=== PATIENT | male | born 1945 | race Caucasian/White ===

== ENCOUNTER 2017-08-31 13:43 | Inpatient (IN) | payer MEDICARE, OTHER ==
[~2017-08-31] VITALS: Ht 172.7 cm; Wt 121.9 kg
[2017-08-31] MEDS ORDERED: SODIUM CHLORIDE FLUSH 10ML SYR IVF ONE (14:30)
[2017-08-31] MEDS ORDERED: ATOR-2 PO (14:34)
[2017-08-31] MEDS ORDERED: ASPI-515 PO (14:34)
[2017-08-31] MEDS ORDERED: LASIX PO (14:34)
[2017-08-31] MEDS ORDERED: BLOOD PRESSURE PO (14:34)
[2017-08-31 14:37] LABS: BASOPHILS # (AUTO) 0.05 x10^3/uL (0-0.1); BASOPHILS % (AUTO) 1 % (0-1); EOSINOPHILS # (AUTO) 0.31 x10^3/uL (0-0.4); EOSINOPHILS % (AUTO) 3 % (1-7); LYMPHOCYTES # (AUTO) 1.39 x10^3/uL (1-3.4); LYMPHOCYTES % (AUTO) 13 % (22-44); MD NO; MEAN CORPUSCULAR HEMOGLOBIN 29.9 pg (27.5-34.5); MEAN CORPUSCULAR HGB CONC 32.9 g/dL (33.2-36.2); MEAN CORPUSCULAR VOLUME 90.8 fL (81-97); MEAN PLATELET VOLUME 8.9 fL (7.4-10.4); MONOCYTES % (AUTO) 9 % (2-9); NEUTROPHILS # (AUTO) 7.99 x10^3/uL (1.8-6.8); NEUTROPHILS % (AUTO) 75 % (42-75); PLATELET COUNT 196 x10^3/uL (130-400); RED BLOOD COUNT 3.35 x10^6/uL (4.38-5.82); RED CELL DISTRIBUTION WIDTH 13.8 % (9.4-14.8)
[2017-08-31 14:45] LABS: INTERNATIONAL NORMALIZED RATIO 1.01 (0.93-1.1); PROTHROMBIN TIME 10.5 Seconds (9.6-11.5)
[2017-08-31] MEDS ORDERED: FUROSEMIDE 40 MG/4 ML ONE (14:49)
[2017-08-31 14:50] LABS: ALANINE AMINOTRANSFERASE 18 U/L (12-78); ALBUMIN 2.8 g/dL (3.4-5.0); ANION GAP 13 mmol/L (5-15); CALCIUM 6.8 mg/dL (8.5-10.1); CHLORIDE 108 mmol/L (98-107); CREATININE 7.75 mg/dL (0.7-1.3)
[2017-08-31] MEDS ORDERED: NITROGLYCERIN OINT 2%, 1GM TP ONE ×2 (14:50→15:00)
[2017-08-31 14:54] LABS: ALKALINE PHOSPHATASE 122 U/L (45-117); BILIRUBIN,TOTAL 0.4 mg/dL (0.2-1.0); TOTAL PROTEIN 6.6 g/dL (6.4-8.2); TROPONIN I 0.045 ng/mL (0.000-0.045)
[2017-08-31] MEDS ORDERED: LOSA100T6 PO (15:07)
[2017-08-31] MEDS ORDERED: GABA600T2 PO (15:07)
[2017-08-31] MEDS ORDERED: OMEP-110 PO (15:07)
[2017-08-31] MEDS ORDERED: INSU100V8 SQ (15:07)
[2017-08-31] MEDS ORDERED: TAMS-11 PO (15:07)
[2017-08-31] MEDS ORDERED: TRAM50TA2 PO (15:07)
[2017-08-31] MEDS ORDERED: FLUT12HF IH (15:07)
[2017-08-31] MEDS ORDERED: CEFTRIAXONE PMX 1GM/50ML 50 ML IV ONE (15:30)
[2017-08-31] MEDS ORDERED: AZITHROMYCIN 500 MG in SODIUM CHLORIDE 0.9% 250 ML IV ONE (15:30)
[2017-08-31] MEDS ORDERED: CEFTRIAXONE PMX 1GM/50ML 50 ML ONE (15:37)
[2017-08-31] MEDS ORDERED: LIDOCAINE-MPF 1%, 2ML ONE (16:13)
[2017-08-31] MEDS ORDERED: FENTANYL PF 100 MCG/2ML ONE (16:27)
[2017-08-31] MEDS ORDERED: NALOXONE 1 MG/ML, 2ML ONE (16:28)
[2017-08-31] MEDS ORDERED: FLUMAZENIL 0.1 MG/1 ML, 5ML ONE (16:28)
[2017-08-31] MEDS ORDERED: MIDAZOLAM 1 MG/ML, 5ML ONE ×2 (16:28)
[2017-08-31] MEDS ORDERED: LIDOCAINE-MPF 2% ,5ML ONE ×2 (16:39→17:19)
[2017-08-31] MEDS ORDERED: DOCUSATE 100 MG CAPSULE PO PRN (17:30)
[2017-08-31] MEDS: INSULIN LISPRO 100 UNITS/ML, PEN SQ-INSULIN SCH ×2 (17:30→21:00)
[2017-08-31] MEDS ORDERED: hydrALAzine 20 MG/ML, 1ML IVPush PRN (17:30)
[2017-08-31] MEDS ORDERED: INSULIN GLARGINE 100 UNITS/ML, PEN SQ-INSULIN SCH (17:30)
[2017-08-31] MEDS: CEFTRIAXONE PMX 1GM/50ML 50 ML IV SCH (17:37)
[2017-08-31 18:02] LABS: HEMOGLOBIN A1C 6.2 % (4.2-6.3)
[2017-08-31 18:26] VITALS: BP 134/86
[2017-08-31 19:05] VITALS: BP 141/87
[2017-08-31] MEDS ORDERED: ALBUTEROL/IPRATROPIUM 2.5MG/0.5MG, 3 ML NPPB PRN (21:30)
[2017-08-31] MEDS: GUAIFENESIN 200 MG TABLET PO SCH (23:19)
[2017-08-31] MEDS: DOXYCYCLINE 100 MG in DEXTROSE 5% 250 ML IV SCH (23:19)
[2017-08-31] MEDS: ATORVASTATIN 20 MG TABLET PO SCH (23:20)
[2017-09-01 02:00] VITALS: BP 167/97
[2017-09-01 05:53] LABS: BASOPHILS # (AUTO) 0.02 x10^3/uL (0-0.1); BASOPHILS % (AUTO) 0 % (0-1); CALCIUM 7.1 mg/dL (8.5-10.1); EOSINOPHILS % (AUTO) 0 % (1-7); LYMPHOCYTES # (AUTO) 0.38 x10^3/uL (1-3.4); LYMPHOCYTES % (AUTO) 4 % (22-44); MD NO; MEAN CORPUSCULAR HEMOGLOBIN 30.4 pg (27.5-34.5); MEAN CORPUSCULAR HGB CONC 33.5 g/dL (33.2-36.2); MEAN PLATELET VOLUME 9.2 fL (7.4-10.4); MONOCYTES # (AUTO) 0.11 x10^3/uL (0.2-0.8); MONOCYTES % (AUTO) 1 % (2-9); NEUTROPHILS # (AUTO) 8.62 x10^3/uL (1.8-6.8); NEUTROPHILS % (AUTO) 94 % (42-75); PLATELET COUNT 189 x10^3/uL (130-400); RED BLOOD COUNT 3.39 x10^6/uL (4.38-5.82); RED CELL DISTRIBUTION WIDTH 13.4 % (9.4-14.8)
[2017-09-01 05:55] LABS: ANION GAP 9 mmol/L (5-15); CHLORIDE 107 mmol/L (98-107); CREATININE 6.21 mg/dL (0.7-1.3)
[2017-09-01] MEDS: GUAIFENESIN 200 MG TABLET PO SCH ×4 (05:58→21:13)
[2017-09-01] MEDS: INSULIN LISPRO 100 UNITS/ML, PEN SQ-INSULIN SCH ×4 (07:00→21:13)
[2017-09-01 08:00] VITALS: BP 162/97
[2017-09-01] MEDS: OMEPRAZOLE 20 MG CAPSULE.DR PO SCH (08:13)
[2017-09-01] MEDS: GABAPENTIN 300 MG CAPSULE PO SCH (08:13)
[2017-09-01] MEDS: ASPIRIN 81 MG TABLET EC PO SCH (08:13)
[2017-09-01] MEDS: FLUTICASONE IH SCH (08:16)
[2017-09-01] MEDS: SALMETEROL IH SCH (08:16)
[2017-09-01] MEDS ORDERED: FUROSEMIDE 40 MG/4 ML IV SCH (09:00)
[2017-09-01] MEDS: TAMSULOSIN 0.4 MG CAP.ER.24H PO SCH (09:00)
[2017-09-01] MEDS: DOXYCYCLINE 100 MG in DEXTROSE 5% 250 ML IV SCH ×2 (09:36→21:13)
[2017-09-01] MEDS: ACETAMINOPHEN 325 MG TABLET PO PRN (16:33)
[2017-09-01] MEDS ORDERED: HEPARIN 5,000 UNITS/ML, 1ML IV ONE (17:00)
[2017-09-01 17:26] LABS: BASOPHILS # (AUTO) 0.01 x10^3/uL (0-0.1); BASOPHILS % (AUTO) 0 % (0-1); EOSINOPHILS % (AUTO) 0 % (1-7); LYMPHOCYTES # (AUTO) 0.38 x10^3/uL (1-3.4); LYMPHOCYTES % (AUTO) 3 % (22-44); MD NO; MEAN CORPUSCULAR HEMOGLOBIN 29.9 pg (27.5-34.5); MEAN CORPUSCULAR HGB CONC 32.9 g/dL (33.2-36.2); MEAN CORPUSCULAR VOLUME 90.8 fL (81-97); MEAN PLATELET VOLUME 9.1 fL (7.4-10.4); MONOCYTES # (AUTO) 0.25 x10^3/uL (0.2-0.8); MONOCYTES % (AUTO) 2 % (2-9); NEUTROPHILS # (AUTO) 11.28 x10^3/uL (1.8-6.8); NEUTROPHILS % (AUTO) 95 % (42-75); PLATELET COUNT 219 x10^3/uL (130-400); RED BLOOD COUNT 3.67 x10^6/uL (4.38-5.82); RED CELL DISTRIBUTION WIDTH 13.1 % (9.4-14.8)
[2017-09-01] MEDS: CEFTRIAXONE PMX 1GM/50ML 50 ML IV SCH (17:43)
[2017-09-01] MEDS: HEPARIN 25,000 UNITS/500ML PMX 500 ML IV PRN (18:37)
[2017-09-01 20:00] VITALS: BP 138/72
[2017-09-01] MEDS: ATORVASTATIN 20 MG TABLET PO SCH (21:13)
[2017-09-01] MEDS: INSULIN GLARGINE 100 UNITS/ML, PEN SQ-INSULIN SCH ×2 (21:14)
[2017-09-02 02:00] VITALS: BP 146/82
[2017-09-02] MEDS: HEPARIN 5,000 UNITS/ML, 1ML IV PRN ×2 (02:28→12:27)
[2017-09-02 05:22] LABS: MEAN PLATELET VOLUME 9.6 fL (7.4-10.4); PLATELET COUNT 220 x10^3/uL (130-400); RED BLOOD COUNT 3.25 x10^6/uL (4.38-5.82); RED CELL DISTRIBUTION WIDTH 13.4 % (9.4-14.8)
[2017-09-02 05:31] LABS: CHLORIDE 105 mmol/L (98-107)
[2017-09-02 05:41] LABS: % IRON SATURATION 34 % (20-55); ALBUMIN 2.5 g/dL (3.4-5.0); ANION GAP 10 mmol/L (5-15); CALCIUM 7.1 mg/dL (8.5-10.1); CREATININE 5.68 mg/dL (0.7-1.3); IRON LEVEL 76 mcg/dL (65-175); TOTAL IRON BINDING CAPACITY 226 mcg/dL (250-450)
[2017-09-02 05:48] LABS: BASOPHILS # (AUTO) 0.03 x10^3/uL (0-0.1); BASOPHILS % (AUTO) 0 % (0-1); EOSINOPHILS # (AUTO) 0.03 x10^3/uL (0-0.4); EOSINOPHILS % (AUTO) 0 % (1-7); LYMPHOCYTES # (AUTO) 1.62 x10^3/uL (1-3.4); LYMPHOCYTES % (AUTO) 9 % (22-44); MD SCAN; MONOCYTES # (AUTO) 1.61 x10^3/uL (0.2-0.8); MONOCYTES % (AUTO) 9 % (2-9); NEUTROPHILS # (AUTO) 14.63 x10^3/uL (1.8-6.8); NEUTROPHILS % (AUTO) 82 % (42-75)
[2017-09-02] MEDS: GUAIFENESIN 200 MG TABLET PO SCH ×4 (05:55→21:53)
[2017-09-02] MEDS ORDERED: METOPROLOL 1 MG/ML, 5ML IVPush STA (06:27)
[2017-09-02] MEDS ORDERED: METOPROLOL 1 MG/ML, 5ML ONE (06:31)
[2017-09-02] MEDS: INSULIN LISPRO 100 UNITS/ML, PEN SQ-INSULIN SCH ×4 (07:00→21:54)
[2017-09-02 08:00] VITALS: BP 110/68
[2017-09-02] MEDS: METOPROLOL TARTRATE 50 MG TABLET PO SCH ×2 (08:39→17:22)
[2017-09-02] MEDS: DOXYCYCLINE 100 MG in DEXTROSE 5% 250 ML IV SCH ×2 (08:39→21:53)
[2017-09-02] MEDS: ASPIRIN 81 MG TABLET EC PO SCH (08:39)
[2017-09-02] MEDS: TAMSULOSIN 0.4 MG CAP.ER.24H PO SCH (08:39)
[2017-09-02] MEDS: GABAPENTIN 300 MG CAPSULE PO SCH (08:40)
[2017-09-02] MEDS: ACETAMINOPHEN 325 MG TABLET PO PRN ×2 (08:40→17:22)
[2017-09-02] MEDS: CALCIUM ACETATE 667 MG CAPSULE PO SCH ×3 (08:52→21:53)
[2017-09-02] MEDS: OMEPRAZOLE 20 MG CAPSULE.DR PO SCH (08:53)
[2017-09-02] MEDS: CALCITRIOL 0.25 MCG CAPSULE PO SCH (08:55)
[2017-09-02] MEDS: SALMETEROL IH SCH (08:57)
[2017-09-02] MEDS: FLUTICASONE IH SCH (08:57)
[2017-09-02] MEDS ORDERED: ERGOCALCIFEROL 50,000 UNIT CAPSULE PO SCH (09:00)
[2017-09-02] MEDS: HEPARIN 25,000 UNITS/500ML PMX 500 ML IV PRN (14:19)
[2017-09-02 15:30] VITALS: BP 142/81
[2017-09-02] MEDS: CEFTRIAXONE PMX 1GM/50ML 50 ML IV SCH (17:27)
[2017-09-02 20:38] VITALS: BP 143/78
[2017-09-02] MEDS: ATORVASTATIN 20 MG TABLET PO SCH (21:53)
[2017-09-02] MEDS: APIXABAN 5 MG TABLET PO SCH (21:53)
[2017-09-02] MEDS: INSULIN GLARGINE 100 UNITS/ML, PEN SQ-INSULIN SCH (21:55)
[2017-09-03 01:25] VITALS: BP 136/76
[2017-09-03 05:22] LABS: MEAN CORPUSCULAR HEMOGLOBIN 30.9 pg (27.5-34.5); MEAN CORPUSCULAR HGB CONC 33.7 g/dL (33.2-36.2); MEAN CORPUSCULAR VOLUME 91.7 fL (81-97); MEAN PLATELET VOLUME 9.5 fL (7.4-10.4); PLATELET COUNT 202 x10^3/uL (130-400)
[2017-09-03 05:33] LABS: CHLORIDE 104 mmol/L (98-107)
[2017-09-03 05:47] LABS: ALBUMIN 2.7 g/dL (3.4-5.0); ANION GAP 12 mmol/L (5-15); CALCIUM 7.2 mg/dL (8.5-10.1); CREATININE 6.62 mg/dL (0.7-1.3)
[2017-09-03 06:02] LABS: BASOPHILS # (AUTO) 0.03 x10^3/uL (0-0.1); BASOPHILS % (AUTO) 0 % (0-1); EOSINOPHILS # (AUTO) 0.01 x10^3/uL (0-0.4); EOSINOPHILS % (AUTO) 0 % (1-7); LYMPHOCYTES # (AUTO) 1.87 x10^3/uL (1-3.4); LYMPHOCYTES % (AUTO) 11 % (22-44); MD SCAN; MONOCYTES # (AUTO) 1.53 x10^3/uL (0.2-0.8); MONOCYTES % (AUTO) 9 % (2-9); NEUTROPHILS # (AUTO) 13.54 x10^3/uL (1.8-6.8); NEUTROPHILS % (AUTO) 80 % (42-75)
[2017-09-03] MEDS: GUAIFENESIN 200 MG TABLET PO SCH ×4 (06:08→21:32)
[2017-09-03] MEDS: METOPROLOL TARTRATE 50 MG TABLET PO SCH ×2 (06:08→16:52)
[2017-09-03] MEDS: ACETAMINOPHEN 325 MG TABLET PO PRN ×3 (06:28→21:32)
[2017-09-03] MEDS: INSULIN LISPRO 100 UNITS/ML, PEN SQ-INSULIN SCH ×4 (07:00→21:34)
[2017-09-03 07:52] VITALS: BP 136/77
[2017-09-03] MEDS: FLUTICASONE IH SCH (08:38)
[2017-09-03] MEDS: DOXYCYCLINE 100 MG in DEXTROSE 5% 250 ML IV SCH ×2 (08:38→21:38)
[2017-09-03] MEDS: CALCITRIOL 0.25 MCG CAPSULE PO SCH (08:38)
[2017-09-03] MEDS: SALMETEROL IH SCH (08:38)
[2017-09-03] MEDS: GABAPENTIN 300 MG CAPSULE PO SCH (08:38)
[2017-09-03] MEDS: OMEPRAZOLE 20 MG CAPSULE.DR PO SCH (08:38)
[2017-09-03] MEDS: TAMSULOSIN 0.4 MG CAP.ER.24H PO SCH (08:38)
[2017-09-03] MEDS: ASPIRIN 81 MG TABLET EC PO SCH (08:49)
[2017-09-03] MEDS: APIXABAN 5 MG TABLET PO SCH ×2 (08:49→21:36)
[2017-09-03] MEDS: CALCIUM ACETATE 667 MG CAPSULE PO SCH ×2 (11:12→16:52)
[2017-09-03 12:34] VITALS: BP 161/84
[2017-09-03] MEDS: CEFTRIAXONE PMX 1GM/50ML 50 ML IV SCH (16:59)
[2017-09-03 18:57] VITALS: BP 144/72
[2017-09-03] MEDS: ATORVASTATIN 20 MG TABLET PO SCH (21:32)
[2017-09-03] MEDS: INSULIN GLARGINE 100 UNITS/ML, PEN SQ-INSULIN SCH (21:33)
[2017-09-04] VITALS (11 sets, daily range): BP systolic 90–160; BP diastolic 55–83
[2017-09-04] MEDS: METOPROLOL TARTRATE 50 MG TABLET PO SCH ×2 (05:36→18:14)
[2017-09-04] MEDS: GUAIFENESIN 200 MG TABLET PO SCH (05:36)
[2017-09-04 05:56] LABS: MEAN CORPUSCULAR HEMOGLOBIN 30.7 pg (27.5-34.5); MEAN CORPUSCULAR HGB CONC 33.5 g/dL (33.2-36.2); MEAN CORPUSCULAR VOLUME 91.5 fL (81-97); MEAN PLATELET VOLUME 9.3 fL (7.4-10.4); PLATELET COUNT 196 x10^3/uL (130-400); RED BLOOD COUNT 3.22 x10^6/uL (4.38-5.82)
[2017-09-04 06:03] LABS: ALANINE AMINOTRANSFERASE 21 U/L (12-78); ALBUMIN 2.6 g/dL (3.4-5.0); ANION GAP 12 mmol/L (5-15); CHLORIDE 101 mmol/L (98-107); CREATININE 5.24 mg/dL (0.7-1.3)
[2017-09-04 06:05] LABS: ALKALINE PHOSPHATASE 106 U/L (45-117); BILIRUBIN,TOTAL 0.5 mg/dL (0.2-1.0); TOTAL PROTEIN 5.8 g/dL (6.4-8.2)
[2017-09-04 06:31] LABS: BASOPHILS # (AUTO) 0.02 x10^3/uL (0-0.1); BASOPHILS % (AUTO) 0 % (0-1); EOSINOPHILS # (AUTO) 0.03 x10^3/uL (0-0.4); EOSINOPHILS % (AUTO) 0 % (1-7); LYMPHOCYTES # (AUTO) 2.06 x10^3/uL (1-3.4); LYMPHOCYTES % (AUTO) 14 % (22-44); MD SCAN; MONOCYTES # (AUTO) 1.53 x10^3/uL (0.2-0.8); MONOCYTES % (AUTO) 11 % (2-9); NEUTROPHILS # (AUTO) 10.95 x10^3/uL (1.8-6.8); NEUTROPHILS % (AUTO) 75 % (42-75)
[2017-09-04] MEDS: INSULIN LISPRO 100 UNITS/ML, PEN SQ-INSULIN SCH ×4 (07:00→21:28)
[2017-09-04] MEDS: CALCITRIOL 0.25 MCG CAPSULE PO SCH (08:24)
[2017-09-04] MEDS: OMEPRAZOLE 20 MG CAPSULE.DR PO SCH (08:24)
[2017-09-04] MEDS: GABAPENTIN 300 MG CAPSULE PO SCH (08:24)
[2017-09-04] MEDS: CALCIUM ACETATE 667 MG CAPSULE PO SCH ×3 (08:24→16:59)
[2017-09-04] MEDS: TAMSULOSIN 0.4 MG CAP.ER.24H PO SCH (08:25)
[2017-09-04] MEDS: APIXABAN 5 MG TABLET PO SCH ×2 (08:25→21:27)
[2017-09-04] MEDS: FLUTICASONE IH SCH (09:00)
[2017-09-04] MEDS: SALMETEROL IH SCH (09:00)
[2017-09-04] MEDS: DOXYCYCLINE 100 MG in DEXTROSE 5% 250 ML IV SCH ×2 (09:56→21:27)
[2017-09-04] MEDS: ACETAMINOPHEN 325 MG TABLET PO PRN ×2 (11:11→19:58)
[2017-09-04] MEDS: GUAIFENESIN 100 MG/5 ML, 10ML UDC PO SCH ×2 (16:59→21:27)
[2017-09-04] MEDS: CEFTRIAXONE PMX 1GM/50ML 50 ML IV SCH (16:59)
[2017-09-04] MEDS: ATORVASTATIN 20 MG TABLET PO SCH (21:28)
[2017-09-04] MEDS: INSULIN GLARGINE 100 UNITS/ML, PEN SQ-INSULIN SCH (21:29)
[2017-09-05 02:42] VITALS: BP 130/60
[2017-09-05 05:09] LABS: MEAN CORPUSCULAR HEMOGLOBIN 30.2 pg (27.5-34.5); MEAN CORPUSCULAR HGB CONC 32.9 g/dL (33.2-36.2); MEAN CORPUSCULAR VOLUME 91.8 fL (81-97); MEAN PLATELET VOLUME 9.2 fL (7.4-10.4); PLATELET COUNT 181 x10^3/uL (130-400); RED BLOOD COUNT 3.38 x10^6/uL (4.38-5.82); RED CELL DISTRIBUTION WIDTH 13.7 % (9.4-14.8)
[2017-09-05 05:33] LABS: ALANINE AMINOTRANSFERASE 21 U/L (12-78); ALBUMIN 2.6 g/dL (3.4-5.0); ALKALINE PHOSPHATASE 102 U/L (45-117); BILIRUBIN,TOTAL 0.4 mg/dL (0.2-1.0); CALCIUM 7.2 mg/dL (8.5-10.1); CREATININE 6.28 mg/dL (0.7-1.3); TOTAL PROTEIN 5.8 g/dL (6.4-8.2)
[2017-09-05 05:38] LABS: ANION GAP 12 mmol/L (5-15); BASOPHILS # (AUTO) 0.07 x10^3/uL (0-0.1); BASOPHILS % (AUTO) 0 % (0-1); CHLORIDE 103 mmol/L (98-107); EOSINOPHILS # (AUTO) 0.07 x10^3/uL (0-0.4); EOSINOPHILS % (AUTO) 1 % (1-7); LYMPHOCYTES # (AUTO) 2.14 x10^3/uL (1-3.4); LYMPHOCYTES % (AUTO) 14 % (22-44); MD SCAN; MONOCYTES # (AUTO) 1.53 x10^3/uL (0.2-0.8); MONOCYTES % (AUTO) 10 % (2-9); NEUTROPHILS # (AUTO) 11.55 x10^3/uL (1.8-6.8); NEUTROPHILS % (AUTO) 75 % (42-75)
[2017-09-05 05:43] VITALS: BP 145/71
[2017-09-05] MEDS: METOPROLOL TARTRATE 50 MG TABLET PO SCH (05:44)
[2017-09-05] MEDS: GUAIFENESIN 100 MG/5 ML, 10ML UDC PO SCH ×2 (05:44→11:34)
[2017-09-05] MEDS: INSULIN LISPRO 100 UNITS/ML, PEN SQ-INSULIN SCH ×2 (07:00→11:34)
[2017-09-05 07:30] VITALS: BP 117/68
[2017-09-05] MEDS: TAMSULOSIN 0.4 MG CAP.ER.24H PO SCH (07:36)
[2017-09-05] MEDS: FLUTICASONE IH SCH (07:36)
[2017-09-05] MEDS: APIXABAN 5 MG TABLET PO SCH (07:36)
[2017-09-05] MEDS: GABAPENTIN 300 MG CAPSULE PO SCH (07:36)
[2017-09-05] MEDS: CALCITRIOL 0.25 MCG CAPSULE PO SCH (07:36)
[2017-09-05] MEDS: CALCIUM ACETATE 667 MG CAPSULE PO SCH ×2 (07:36→11:34)
[2017-09-05] MEDS: SALMETEROL IH SCH (07:36)
[2017-09-05] MEDS: OMEPRAZOLE 20 MG CAPSULE.DR PO SCH (07:36)
[2017-09-05] MEDS: DOXYCYCLINE 100 MG in DEXTROSE 5% 250 ML IV SCH (08:26)
[2017-09-05] MEDS ORDERED: CALC0.25 PO (11:08)
[2017-09-05] MEDS ORDERED: TIOT18CA INH (11:08)
[2017-09-05] MEDS ORDERED: FLUT1DIS IH (11:08)
[2017-09-05] MEDS ORDERED: APIX5TAB PO (11:08)
[2017-09-05] MEDS ORDERED: METO50TA82 PO (11:08)
[2017-09-05] MEDS ORDERED: PRED10TA PO (11:08)
[2017-09-05] MEDS ORDERED: ERGO500017 PO (11:08)
[2017-09-05] MEDS ORDERED: CEFD300C37 PO (11:08)
[2017-09-05] MEDS ORDERED: DOXY100C15 PO (11:08)
[2017-09-05] MEDS ORDERED: CALC667C PO (11:10)
[2017-09-05] MEDS: ACETAMINOPHEN 325 MG TABLET PO PRN (11:38)
[2017-09-05 14:01] VITALS: BP 111/69
[2017-09-05] MEDS ORDERED: APIXABAN 5 MG TABLET PO SCH (21:00)
[2017-09-05] MEDS ORDERED: DOXYCYCLINE 100MG CAP PO SCH (21:00)
== END 2017-09-05 17:30 | disposition home or self-care (01) | DRG 871 ==
LOC: ED 15:22 → EDIP 15:51 → 4WST 18:13
PROVIDERS: ADMIT Internal Medicine; ATTEND Internal Medicine
PROC: 5A1D70Z Performance of Urinary Filtration, Intermittent, Less than 6 Hours Per Day (ICD-10-PCS; 2017-08-31)
PROC: 5A1D70Z Performance of Urinary Filtration, Intermittent, Less than 6 Hours Per Day (ICD-10-PCS; 2017-09-01)
PROC: 0JH63XZ Insertion of Tunneled Vascular Access Device into Chest Subcutaneous Tissue and Fascia, Percutaneous Approach (ICD-10-PCS; principal; 2017-09-03)
PROC: 02HV33Z Insertion of Infusion Device into Superior Vena Cava, Percutaneous Approach (ICD-10-PCS; 2017-09-03)
PROC: B548ZZA Ultrasonography of Superior Vena Cava, Guidance (ICD-10-PCS; 2017-09-03)
PROC: 5A1D70Z Performance of Urinary Filtration, Intermittent, Less than 6 Hours Per Day (ICD-10-PCS; 2017-09-03)
PROC: 5A1D70Z Performance of Urinary Filtration, Intermittent, Less than 6 Hours Per Day (ICD-10-PCS; 2017-09-04)
DX: A41.9 Sepsis, unspecified organism (principal); J18.9 Pneumonia, unspecified organism; J96.01 Acute respiratory failure with hypoxia; E43 Unspecified severe protein-calorie malnutrition; I13.2 Hypertensive heart and chronic kidney disease with heart failure and with stage 5 chronic kidney disease, or end stage renal disease; E11.21 Type 2 diabetes mellitus with diabetic nephropathy; D68.69 Other thrombophilia; N17.9 Acute kidney failure, unspecified; E11.40 Type 2 diabetes mellitus with diabetic neuropathy, unspecified; N18.6 End stage renal disease; I50.41 Acute combined systolic (congestive) and diastolic (congestive) heart failure; J44.0 Chronic obstructive pulmonary disease with (acute) lower respiratory infection; J44.1 Chronic obstructive pulmonary disease with (acute) exacerbation; I50.1 Left ventricular failure, unspecified; Z68.41 Body mass index [BMI] 40.0-44.9, adult; I48.91 Unspecified atrial fibrillation; E11.22 Type 2 diabetes mellitus with diabetic chronic kidney disease; J30.9 Allergic rhinitis, unspecified; D63.1 Anemia in chronic kidney disease; E66.01 Morbid (severe) obesity due to excess calories; E78.5 Hyperlipidemia, unspecified; E83.51 Hypocalcemia; K21.9 Gastro-esophageal reflux disease without esophagitis; N25.0 Renal osteodystrophy; N40.0 Benign prostatic hyperplasia without lower urinary tract symptoms; Z87.891 Personal history of nicotine dependence
CPT/HCPCS: 36415; 36565; 71045; 76937; 77001; 80048; 80053; 80069; 82306; 82728; 82962; 83036; 83540; 83550; 83605; 83735; 83880; 83970; 84100; 84132; 84145; 84484; 85025; 85520; 85610; 86480; 86704; 86706; 86803; 87040; 87070; 87077; 87186; 87205; 87340; 93005; 93306; 96365; 96368; 96375; 99156; 99157; C1894; J0456; J0696; J1644; J1940; J2250; J3010; J3490; J7060; C1750; J1642; J1815; J2310; J7050; J7512

== ENCOUNTER 2017-12-10 07:11 | Day surgery (SDC) | payer MEDICARE, OTHER ==
[~2017-12-10] VITALS: Ht 172.7 cm; Wt 119.0 kg
[~2017-12-10 07:11] MED LIST: APIX5TAB PO; ASPI-515 PO; ATOR-2 PO; BLOOD PRESSURE PO; CALC0.25 PO; CALC667C PO; CEFD300C37 PO; DOXY100C15 PO; ERGO500017 PO; FLUT12HF IH; FLUT1DIS IH; GABA600T2 PO; INSU100V8 SQ; LASIX PO; LOSA100T6 PO; METO50TA82 PO; OMEP-110 PO; PRED10TA PO; TAMS-11 PO; TIOT18CA INH; TRAM50TA2 PO
[2017-12-10 07:54] VITALS: BP 112/74
[2017-12-10] MEDS ORDERED: ATOR10TA9 PO (08:01)
[2017-12-10] MEDS ORDERED: FURO20TA3 PO (08:01)
[2017-12-10] MEDS ORDERED: APIX5TAB PO (08:01)
[2017-12-10] MEDS ORDERED: INSU100I18 SQ ×2 (08:30)
[2017-12-10] MEDS ORDERED: SODIUM CHLORIDE 0.9% 1,000 ML IV SCH (08:30)
[2017-12-10] MEDS ORDERED: FENTANYL PF 100 MCG/2ML ONE (09:14)
[2017-12-10] MEDS ORDERED: HEPARIN 1,000 UNITS/ML, 10ML ONE (10:00)
[2017-12-10] MEDS ORDERED: ALBUTEROL SULFATE 2.5 MG/3 ML NPPB PRN (10:30)
[2017-12-10] MEDS ORDERED: PROMETHAZINE 25 MG/ML, 1ML IV PRN (10:30)
[2017-12-10] MEDS ORDERED: ACETAMINOPHEN 325 MG TABLET PO PRN (10:30)
[2017-12-10] MEDS ORDERED: FENTANYL PF 100 MCG/2ML IV PRN (10:30)
[2017-12-10] MEDS ORDERED: OXYcodone 5 MG/5 ML ORAL.SOL UDC PO PRN (10:30)
[2017-12-10] MEDS ORDERED: CEFAZOLIN 1,000 MG ONE ×2 (10:33)
[2017-12-10] MEDS ORDERED: PROPOFOL 10 MG/ML, 20ML ONE (10:33)
[2017-12-10] MEDS ORDERED: OXYcodone 5 MG/5 ML ORAL.SOL UDC ONE (11:25)
[2017-12-10] MEDS ORDERED: PAPAVERINE 30 MG/ML, 2ML ONE (13:47)
[2017-12-10] MEDS ORDERED: BUPIVACAINE/PF 0.5% ONE (13:47)
[2017-12-10] MEDS ORDERED: EPINEPHRINE 1 MG/ML, 1ML ONE (13:47)
[2017-12-10] MEDS ORDERED: ONDANSETRON 2MG/ML, 2ML ONE (15:33)
[2017-12-10] MEDS ORDERED: PHENYLEPHRINE 10 MG/ML ONE (15:33)
== END 2017-12-10 12:50 | disposition home or self-care (01) ==
LOC: OUT 07:11
PROVIDERS: ATTEND Surgery Vascular Surgery
DX: E11.22 Type 2 diabetes mellitus with diabetic chronic kidney disease (principal); I13.2 Hypertensive heart and chronic kidney disease with heart failure and with stage 5 chronic kidney disease, or end stage renal disease; I50.9 Heart failure, unspecified; N18.6 End stage renal disease; E78.5 Hyperlipidemia, unspecified; J44.9 Chronic obstructive pulmonary disease, unspecified; D64.9 Anemia, unspecified; J30.9 Allergic rhinitis, unspecified; N40.0 Benign prostatic hyperplasia without lower urinary tract symptoms; K21.9 Gastro-esophageal reflux disease without esophagitis; E66.01 Morbid (severe) obesity due to excess calories; E11.40 Type 2 diabetes mellitus with diabetic neuropathy, unspecified; Z86.14 Personal history of Methicillin resistant Staphylococcus aureus infection; Z87.891 Personal history of nicotine dependence; Z79.82 Long term (current) use of aspirin; Z79.899 Other long term (current) drug therapy; Z68.41 Body mass index [BMI] 40.0-44.9, adult; Z87.01 Personal history of pneumonia (recurrent)
CPT/HCPCS: 36415; 36821; 80047; J0690; J1644; J2370; J2405; J2440; J2704; J3010; J3490; J7030; J0171

== ENCOUNTER 2018-08-13 19:52 | Inpatient (IN) | payer MEDICARE, OTHER ==
[~2018-08-13] VITALS: Ht 175.3 cm; Wt 90.9 kg
[~2018-08-13 19:52] MED LIST changes: +ATOR10TA9 PO; +FURO20TA3 PO; -GABA600T2 PO; +GABA600T7 PO; +INSU100I18 SQ; +LOSA100T14 PO; -LOSA100T6 PO
--- NOTE | 2018-08-13 20:28 | NUR ---
pt to ed for redness to abd dialysis port. scheduled m,w,f. pt and report fever up to 100.6 today. pt was prescribed abx yesterday but was unable to obtain from pharmacy. pt also states he fell today due to weak legs and was unable to get up. audio/video engineer were called to help pt get back up. pt states increasing sob x2 days. connected to monitors. ra o2 sat 78%, 3l nc placed and pt recovered to 98%. all other vss. orders received. xr complete. pa student to bedside for assessment. awaiting results.
[2018-08-13] MEDS ORDERED: SODIUM CHLORIDE FLUSH 10ML SYR IVF ONE (20:30)
[2018-08-13] MEDS ORDERED: ACETAMINOPHEN 325 MG TABLET PO ONE (20:30)
[2018-08-13 20:50] LABS: MEAN CORPUSCULAR HEMOGLOBIN 32.7 pg (27.5-34.5); MEAN CORPUSCULAR HGB CONC 33.7 g/dL (33.2-36.2); MEAN CORPUSCULAR VOLUME 97.1 fL (81-97); MEAN PLATELET VOLUME 8.1 fL (7.4-10.4); PLATELET COUNT 272 x10^3/uL (130-400); RED BLOOD COUNT 2.95 x10^6/uL (4.38-5.82); RED CELL DISTRIBUTION WIDTH 13.7 % (9.4-14.8)
[2018-08-13 20:53] LABS: MD YES
[2018-08-13 20:59] LABS: ALANINE AMINOTRANSFERASE 28 U/L (12-78); ALBUMIN 2.4 g/dL (3.4-5.0); ANION GAP 7 mmol/L (5-15); CALCIUM 8.7 mg/dL (8.5-10.1); CHLORIDE 102 mmol/L (98-107); CREATININE 5.68 mg/dL (0.7-1.3)
[2018-08-13 21:04] LABS: ALKALINE PHOSPHATASE 74 U/L (45-117); BILIRUBIN,TOTAL 0.5 mg/dL (0.2-1.0); TOTAL PROTEIN 5.9 g/dL (6.4-8.2)
--- NOTE | 2018-08-13 21:08 | NUR ---
iv established and 2nd set of bc collected. edmd to bedside to update on poc. plan to admit. pt states nearly aneuric. edmd aware. vss. no needs expressed. call light within reach.
[2018-08-13] MEDS ORDERED: ACETAMINOPHEN 325 MG TABLET ONE (21:11)
--- NOTE | 2018-08-13 21:52 | NUR ---
PT RESTING IN ROOM. VSS. NO NEEDS EXPRESSED. CALL LIGHT WITHIN REACH. AWAITING US.
[2018-08-13 21:54] LABS: BAND#(MANUAL) 1.25 x10^3/uL; BANDS%(MANUAL) 6 % (0-7); LYMPH#(MANUAL) 0.42 x10^3/uL (1-3.4); LYMPHS% (MANUAL) 2 % (22-44); METAMYELOCYTES# (MANUAL) 0.21 x10^3/uL (0-0); METAMYELOCYTES% (MANUAL) 1 % (0-1); MONOS#(MANUAL) 1.05 x10^3/uL (0.3-2.7); MONOS% (MANUAL) 5 % (2-9); MYELOCYTES# (MANUAL) 0.42 x10^3/uL (0-0); MYELOCYTES% (MANUAL) 2 % (0-0); SEG#(MANUAL) 17.56 x10^3/uL (1.8-6.8); SEGS% (MANUAL) 84 % (42-75)
[2018-08-13 21:56] LABS: <PLATELET ESTIMATE> ADEQUATE; <PLT MORPHOLOGY> NORMAL PLT MORPH; ANISOCYTOSIS 1+; POLYCHROMASIA 1+
--- NOTE | 2018-08-13 22:01 | NUR ---
BS REPORT TO JAGDISH LIZARRAGA. PT TO US AT THIS TIME.
[2018-08-13] MEDS ORDERED: LIDOCAINE-MPF 1%, 5ML ONE (22:05)
--- NOTE | 2018-08-13 22:47 | NUR ---
Report from Irene DUBON. Pt returned from IR. No fluid removed. Pt NAD at this time.
[2018-08-13] MEDS ORDERED: CEFTRIAXONE PMX 1GM/50ML 50 ML IVPB ONE (23:30)
[2018-08-13] MEDS ORDERED: CEFTRIAXONE PMX 1GM/50ML 50 ML ONE (23:53)
[2018-08-14] MEDS ORDERED: SODIUM CHLORIDE FLUSH 10ML SYR IVF PRN
[2018-08-14] MEDS ORDERED: ALBUTEROL/IPRATROPIUM 2.5MG/0.5MG, 3 ML HHN PRN (00:30)
[2018-08-14] MEDS ORDERED: ONDANSETRON 2MG/ML, 2ML IVPush PRN (00:30)
[2018-08-14 01:00] VITALS: BP 129/69
[2018-08-14 02:28] LABS: RAPID INFLUENZA A Negative (Negative); RAPID INFLUENZA B Negative (Negative)
[2018-08-14] MEDS ORDERED: INSULIN LISPRO 100 UNITS/ML, PEN SQ-INSULIN SCH ×2 (07:00→12:00)
[2018-08-14 07:51] VITALS: BP 134/72
[2018-08-14] MEDS: ASPIRIN 81 MG TABLET EC PO SCH (08:29)
[2018-08-14] MEDS: ATORVASTATIN 10 MG TABLET PO SCH (08:30)
[2018-08-14 09:42] LABS: MICROSCOPIC AUTO
[2018-08-14 09:44] LABS: CULTURE INDICATED? NO
[2018-08-14] MEDS: INSULIN LISPRO 100 UNITS/ML, PEN SQ-INSULIN SCH ×4 (11:00→21:00)
[2018-08-14] MEDS ORDERED: ARANESP 100 MCG/ML **ESRD SQ SCH (11:00)
[2018-08-14 14:00] VITALS: BP 144/67
[2018-08-14] MEDS ORDERED: VANCOMYCIN PER PHARMACY MC PRN (14:30)
[2018-08-14] MEDS ORDERED: AMPICILLIN/SULBACTAM 3 GM in SODIUM CHLORIDE 0.9% 100 ML IV SCH (14:30)
[2018-08-14] MEDS ORDERED: VANCOMYCIN PMX 1GM/200ML 200 ML IV ONE (14:30)
[2018-08-14] MEDS ORDERED: VANCOMYCIN 1,700 MG in SODIUM CHLORIDE 0.9% 250 ML IV ONE (15:00)
[2018-08-14] MEDS ORDERED: PHARMACOKINETIC MONITORING MC PRN (15:00)
[2018-08-14 19:36] VITALS: BP 161/68
[2018-08-14] MEDS: ACETAMINOPHEN 325 MG TABLET PO PRN (21:25)
[2018-08-14 21:38] VITALS: BP 157/73
[2018-08-14] MEDS ORDERED: METOPROLOL 1 MG/ML, 5ML ONE (22:16)
[2018-08-14] MEDS ORDERED: METOPROLOL 1 MG/ML, 5ML IVPush ONE (22:30)
[2018-08-14 22:53] VITALS: BP 129/77
[2018-08-14] MEDS ORDERED: ADENOSINE 6 MG/2 ML IVPush ONE (23:00)
[2018-08-14] MEDS: AMIODARONE 150 MG in DEXTROSE 5% 100 ML IV ONE ×2 (23:30→23:42)
[2018-08-14] MEDS ORDERED: AMIODARONE 900 MG in DEXTROSE 5% 482 ML IV PRN (23:30)
[2018-08-14] MEDS ORDERED: FILTER 0.22 MICRON IV PRN (23:30)
[2018-08-15 00:12] LABS: MEAN CORPUSCULAR HEMOGLOBIN 33.2 pg (27.5-34.5); MEAN CORPUSCULAR HGB CONC 33.8 g/dL (33.2-36.2); MEAN CORPUSCULAR VOLUME 98.1 fL (81-97); MEAN PLATELET VOLUME 7.9 fL (7.4-10.4); PLATELET COUNT 294 x10^3/uL (130-400); RED BLOOD COUNT 2.86 x10^6/uL (4.38-5.82); RED CELL DISTRIBUTION WIDTH 13.6 % (9.4-14.8)
[2018-08-15 00:22] LABS: ALANINE AMINOTRANSFERASE 29 U/L (12-78); ALBUMIN 2.3 g/dL (3.4-5.0); ANION GAP 10 mmol/L (5-15); CALCIUM 8.4 mg/dL (8.5-10.1); CHLORIDE 101 mmol/L (98-107); CREATININE 3.95 mg/dL (0.7-1.3)
[2018-08-15 00:27] LABS: ALKALINE PHOSPHATASE 84 U/L (45-117); BILIRUBIN,TOTAL 0.5 mg/dL (0.2-1.0); TOTAL PROTEIN 6.1 g/dL (6.4-8.2); TROPONIN I 0.086 ng/mL (0.000-0.045)
[2018-08-15 00:35] LABS: MD YES
[2018-08-15 00:36] LABS: LYMPH#(MANUAL) 1.01 x10^3/uL (1-3.4); LYMPHS% (MANUAL) 5 % (22-44); MONOS#(MANUAL) 1.82 x10^3/uL (0.3-2.7); MONOS% (MANUAL) 9 % (2-9); SEG#(MANUAL) 17.37 x10^3/uL (1.8-6.8); SEGS% (MANUAL) 86 % (42-75)
[2018-08-15 00:37] LABS: <PLATELET ESTIMATE> ADEQUATE; <PLT MORPHOLOGY> NORMAL PLT MORPH; ANISOCYTOSIS 1+
[2018-08-15 04:56] LABS: MEAN CORPUSCULAR HEMOGLOBIN 33.2 pg (27.5-34.5); MEAN CORPUSCULAR HGB CONC 34.2 g/dL (33.2-36.2); MEAN PLATELET VOLUME 7.9 fL (7.4-10.4); PLATELET COUNT 265 x10^3/uL (130-400); RED BLOOD COUNT 2.99 x10^6/uL (4.38-5.82); RED CELL DISTRIBUTION WIDTH 13.4 % (9.4-14.8)
[2018-08-15 05:03] LABS: ALBUMIN 2.3 g/dL (3.4-5.0); CALCIUM 8.4 mg/dL (8.5-10.1); CHLORIDE 105 mmol/L (98-107)
[2018-08-15 05:04] LABS: ANION GAP 6 mmol/L (5-15); CREATININE 4.29 mg/dL (0.7-1.3)
[2018-08-15 05:40] LABS: BASOPHILS # (AUTO) 0.06 x10^3/uL (0-0.1); BASOPHILS % (AUTO) 0 % (0-1); EOSINOPHILS # (AUTO) 0.34 x10^3/uL (0-0.4); EOSINOPHILS % (AUTO) 2 % (1-7); LYMPHOCYTES % (AUTO) 5 % (22-44); MD SCAN; MONOCYTES # (AUTO) 1.59 x10^3/uL (0.2-0.8); MONOCYTES % (AUTO) 8 % (2-9); NEUTROPHILS % (AUTO) 86 % (42-75)
[2018-08-15] MEDS ORDERED: ZOSYN PER PHARMACY MC PRN (07:30)
[2018-08-15] MEDS: PIPERACILLIN/TAZO 2.25 GM in NS 50 ML IV SCH ×2 (08:29→16:24)
[2018-08-15] MEDS: ASPIRIN 81 MG TABLET EC PO SCH (08:29)
[2018-08-15] MEDS: ATORVASTATIN 10 MG TABLET PO SCH (08:29)
[2018-08-15] MEDS: INSULIN LISPRO 100 UNITS/ML, PEN SQ-INSULIN SCH ×5 (09:44→22:36)
[2018-08-15 13:52] VITALS: BP 147/68
[2018-08-15 16:57] VITALS: BP 166/86
[2018-08-15 19:19] VITALS: BP 157/88
[2018-08-15] MEDS: ACETAMINOPHEN 325 MG TABLET PO PRN (22:34)
[2018-08-16] MEDS: PIPERACILLIN/TAZO 2.25 GM in NS 50 ML IV SCH ×3 (00:40→19:42)
[2018-08-16 00:47] VITALS: BP 150/65
[2018-08-16 06:04] LABS: BASOPHILS # (AUTO) 0.04 x10^3/uL (0-0.1); BASOPHILS % (AUTO) 0 % (0-1); EOSINOPHILS # (AUTO) 0.47 x10^3/uL (0-0.4); EOSINOPHILS % (AUTO) 3 % (1-7); LYMPHOCYTES # (AUTO) 1.15 x10^3/uL (1-3.4); LYMPHOCYTES % (AUTO) 8 % (22-44); MD NO; MEAN CORPUSCULAR HEMOGLOBIN 32.5 pg (27.5-34.5); MEAN CORPUSCULAR HGB CONC 32.9 g/dL (33.2-36.2); MEAN CORPUSCULAR VOLUME 98.5 fL (81-97); MEAN PLATELET VOLUME 7.8 fL (7.4-10.4); MONOCYTES # (AUTO) 1.14 x10^3/uL (0.2-0.8); MONOCYTES % (AUTO) 8 % (2-9); NEUTROPHILS # (AUTO) 12.04 x10^3/uL (1.8-6.8); NEUTROPHILS % (AUTO) 81 % (42-75); PLATELET COUNT 289 x10^3/uL (130-400); RED BLOOD COUNT 2.91 x10^6/uL (4.38-5.82); RED CELL DISTRIBUTION WIDTH 13.8 % (9.4-14.8)
[2018-08-16 06:09] LABS: ALANINE AMINOTRANSFERASE 33 U/L (12-78); ALBUMIN 2.2 g/dL (3.4-5.0); ANION GAP 9 mmol/L (5-15); CALCIUM 8.4 mg/dL (8.5-10.1); CHLORIDE 104 mmol/L (98-107)
[2018-08-16 06:12] LABS: ALKALINE PHOSPHATASE 76 U/L (45-117); BILIRUBIN,TOTAL 0.4 mg/dL (0.2-1.0); CREATININE 5.55 mg/dL (0.7-1.3); TOTAL PROTEIN 5.9 g/dL (6.4-8.2); VANCOMYCIN,RANDOM 12.9 mcg/mL
[2018-08-16 06:37] LABS: HCT (SEDRATE) 28.7 % (39.2-51.8)
[2018-08-16] MEDS: INSULIN LISPRO 100 UNITS/ML, PEN SQ-INSULIN SCH ×5 (07:00→19:44)
[2018-08-16 07:23] VITALS: BP 176/82
[2018-08-16] MEDS: ASPIRIN 81 MG TABLET EC PO SCH (08:15)
[2018-08-16] MEDS: ATORVASTATIN 10 MG TABLET PO SCH (08:15)
[2018-08-16] MEDS ORDERED: FENTANYL PF 100 MCG/2ML ONE (10:47)
[2018-08-16] MEDS ORDERED: EPINEPHRINE 1 MG/ML, 1ML ONE (10:54)
[2018-08-16] MEDS ORDERED: LIDOCAINE 1%, 20ML ONE (10:55)
[2018-08-16] MEDS ORDERED: HYDROmorphone 2 MG/ML, 1ML IVPush PRN (11:00)
[2018-08-16] MEDS ORDERED: ONDANSETRON 2MG/ML, 2ML IV PRN (11:00)
[2018-08-16] MEDS ORDERED: PROMETHAZINE 25 MG/ML, 1ML IV PRN (11:00)
[2018-08-16] MEDS ORDERED: FENTANYL PF 100 MCG/2ML IV PRN (11:00)
[2018-08-16] MEDS ORDERED: hydrALAzine 20 MG/ML, 1ML IV PRN (11:00)
[2018-08-16] MEDS ORDERED: OXYcodone 5 MG/5 ML ORAL.SOL UDC PO PRN (11:00)
[2018-08-16] MEDS ORDERED: LABETALOL 5MG/ML, 20ML IV PRN (11:00)
[2018-08-16] MEDS ORDERED: MIDAZOLAM 1 MG/ML, 2ML ONE (11:24)
[2018-08-16 12:50] VITALS: BP 177/64
[2018-08-16] MEDS: CARVEDILOL 6.25 MG TABLET PO SCH ×2 (13:07→20:18)
[2018-08-16 13:45] VITALS: BP 155/78
[2018-08-16] MEDS ORDERED: hydrALAzine 20 MG/ML, 1ML ONE (14:30)
[2018-08-16] MEDS ORDERED: PROPOFOL 10 MG/ML, 20ML ONE (14:30)
[2018-08-16] MEDS ORDERED: VANCOMYCIN 1,700 MG in SODIUM CHLORIDE 0.9% 250 ML IV ONE (15:00)
[2018-08-16] MEDS ORDERED: DILTIAZEM 5 MG/ML, 5ML IVPush ONE (19:00)
[2018-08-16 19:34] VITALS: BP 107/75
[2018-08-16 20:17] VITALS: BP 107/73
[2018-08-16] MEDS ORDERED: DIGOXIN 0.25 MG/ML, 2ML IVPush ONE (20:30)
[2018-08-16] MEDS: ACETAMINOPHEN 325 MG TABLET PO PRN (20:43)
[2018-08-16] MEDS: TEMAZEPAM 15 MG CAPSULE PO PRN (23:15)
[2018-08-17 00:20] VITALS: BP 137/61
[2018-08-17] MEDS ORDERED: DIGOXIN 0.25 MG/ML, 2ML IVPush ONE ×2 (04:00)
[2018-08-17 04:36] VITALS: BP 126/73
[2018-08-17] MEDS: PIPERACILLIN/TAZO/PMX 2.25GM 50 ML IVPB SCH ×3 (04:37→20:41)
[2018-08-17] MEDS: CARVEDILOL 6.25 MG TABLET PO SCH ×2 (04:37→17:36)
[2018-08-17 05:46] LABS: CHLORIDE 104 mmol/L (98-107)
[2018-08-17 06:04] LABS: ANION GAP 9 mmol/L (5-15); CALCIUM 8.5 mg/dL (8.5-10.1)
[2018-08-17 06:05] LABS: ALBUMIN 2.4 g/dL (3.4-5.0)
[2018-08-17] MEDS: INSULIN LISPRO 100 UNITS/ML, PEN SQ-INSULIN SCH ×5 (07:00→20:57)
[2018-08-17 07:09] VITALS: BP 172/83
[2018-08-17] MEDS: ASPIRIN 81 MG TABLET EC PO SCH (08:57)
[2018-08-17] MEDS: ATORVASTATIN 10 MG TABLET PO SCH (08:57)
[2018-08-17] MEDS: HEPARIN 5,000 UNITS/ML, 1ML SQ SCH ×2 (11:40→20:41)
[2018-08-17] MEDS: ACETAMINOPHEN 325 MG TABLET PO PRN ×2 (12:32→20:59)
[2018-08-17 12:55] VITALS: BP 112/83
[2018-08-17 19:21] VITALS: BP 171/54
[2018-08-17 22:00] VITALS: BP 160/57
[2018-08-17] MEDS: TEMAZEPAM 15 MG CAPSULE PO PRN (22:51)
[2018-08-18 00:24] VITALS: BP 131/66
[2018-08-18] MEDS: CARVEDILOL 6.25 MG TABLET PO SCH ×2 (05:06→17:08)
[2018-08-18] MEDS: HEPARIN 5,000 UNITS/ML, 1ML SQ SCH ×3 (05:06→20:11)
[2018-08-18] MEDS: PIPERACILLIN/TAZO/PMX 2.25GM 50 ML IVPB SCH ×3 (05:06→20:11)
[2018-08-18 05:23] LABS: MEAN CORPUSCULAR HEMOGLOBIN 32.1 pg (27.5-34.5); MEAN CORPUSCULAR HGB CONC 32.9 g/dL (33.2-36.2); MEAN CORPUSCULAR VOLUME 97.7 fL (81-97); MEAN PLATELET VOLUME 7.6 fL (7.4-10.4); PLATELET COUNT 338 x10^3/uL (130-400); RED BLOOD COUNT 3.02 x10^6/uL (4.38-5.82); RED CELL DISTRIBUTION WIDTH 13.2 % (9.4-14.8)
[2018-08-18 05:55] LABS: BASOPHILS # (AUTO) 0.03 x10^3/uL (0-0.1); BASOPHILS % (AUTO) 0 % (0-1); EOSINOPHILS # (AUTO) 0.39 x10^3/uL (0-0.4); EOSINOPHILS % (AUTO) 3 % (1-7); LYMPHOCYTES # (AUTO) 1.53 x10^3/uL (1-3.4); LYMPHOCYTES % (AUTO) 11 % (22-44); MD SCAN; MONOCYTES # (AUTO) 1.08 x10^3/uL (0.2-0.8); MONOCYTES % (AUTO) 7 % (2-9); NEUTROPHILS # (AUTO) 11.57 x10^3/uL (1.8-6.8); NEUTROPHILS % (AUTO) 79 % (42-75)
[2018-08-18] MEDS: INSULIN LISPRO 100 UNITS/ML, PEN SQ-INSULIN SCH ×5 (07:00→21:00)
[2018-08-18] MEDS: ASPIRIN 81 MG TABLET EC PO SCH (08:58)
[2018-08-18] MEDS: ATORVASTATIN 10 MG TABLET PO SCH (08:58)
[2018-08-18 09:19] VITALS: BP 162/64
[2018-08-18] MEDS: LACTOBACILLUS CHEW TABLET PO SCH ×3 (12:38→20:11)
[2018-08-18] MEDS: ACETAMINOPHEN 325 MG TABLET PO PRN (17:08)
[2018-08-18 17:18] VITALS: BP 171/62
[2018-08-18 19:30] VITALS: BP 166/74
[2018-08-18 23:51] VITALS: BP 160/62
[2018-08-19] VITALS (8 sets, daily range): BP systolic 156–192; BP diastolic 65–76
[2018-08-19] MEDS: ACETAMINOPHEN 325 MG TABLET PO PRN ×2 (00:21→20:29)
[2018-08-19] MEDS: TEMAZEPAM 15 MG CAPSULE PO PRN ×2 (00:27→22:11)
[2018-08-19] MEDS: PIPERACILLIN/TAZO/PMX 2.25GM 50 ML IVPB SCH (03:44)
[2018-08-19] MEDS: HEPARIN 5,000 UNITS/ML, 1ML SQ SCH ×3 (03:56→20:29)
[2018-08-19] MEDS ORDERED: LABETALOL 5MG/ML, 20ML IVPush ONE (04:30)
[2018-08-19 05:30] LABS: MEAN CORPUSCULAR HEMOGLOBIN 32.2 pg (27.5-34.5); MEAN CORPUSCULAR HGB CONC 32.8 g/dL (33.2-36.2); MEAN CORPUSCULAR VOLUME 98.3 fL (81-97); MEAN PLATELET VOLUME 7.6 fL (7.4-10.4); PLATELET COUNT 384 x10^3/uL (130-400); RED BLOOD COUNT 3.07 x10^6/uL (4.38-5.82); RED CELL DISTRIBUTION WIDTH 13.3 % (9.4-14.8)
[2018-08-19 05:42] LABS: ALANINE AMINOTRANSFERASE 41 U/L (12-78); ALBUMIN 2.5 g/dL (3.4-5.0); ANION GAP 10 mmol/L (5-15); CALCIUM 8.5 mg/dL (8.5-10.1); CHLORIDE 102 mmol/L (98-107)
[2018-08-19 05:43] LABS: ALKALINE PHOSPHATASE 66 U/L (45-117); BILIRUBIN,TOTAL 0.4 mg/dL (0.2-1.0); TOTAL PROTEIN 6.2 g/dL (6.4-8.2)
[2018-08-19 05:44] LABS: CHLORIDE 102 mmol/L (98-107)
[2018-08-19 05:58] LABS: ALBUMIN 2.6 g/dL (3.4-5.0); ANION GAP 9 mmol/L (5-15); CALCIUM 8.5 mg/dL (8.5-10.1); CREATININE 6.65 mg/dL (0.7-1.3); VANCOMYCIN,RANDOM 20.1 mcg/mL
[2018-08-19] MEDS: CARVEDILOL 6.25 MG TABLET PO SCH ×2 (06:00→16:41)
[2018-08-19 06:06] LABS: BASOPHILS # (AUTO) 0.07 x10^3/uL (0-0.1); BASOPHILS % (AUTO) 1 % (0-1); EOSINOPHILS # (AUTO) 0.57 x10^3/uL (0-0.4); EOSINOPHILS % (AUTO) 4 % (1-7); LYMPHOCYTES # (AUTO) 1.96 x10^3/uL (1-3.4); LYMPHOCYTES % (AUTO) 13 % (22-44); MD SCAN; MONOCYTES # (AUTO) 1.05 x10^3/uL (0.2-0.8); MONOCYTES % (AUTO) 7 % (2-9); NEUTROPHILS # (AUTO) 10.94 x10^3/uL (1.8-6.8); NEUTROPHILS % (AUTO) 75 % (42-75)
[2018-08-19 06:09] LABS: HCT (SEDRATE) 30.2 % (39.2-51.8)
[2018-08-19] MEDS: INSULIN LISPRO 100 UNITS/ML, PEN SQ-INSULIN SCH ×5 (08:20→22:11)
[2018-08-19] MEDS: CIPROFLOXACIN 500 MG TABLET PO SCH (10:29)
[2018-08-19] MEDS: LOSARTAN 50MG TABLET PO SCH (10:29)
[2018-08-19] MEDS: ASPIRIN 81 MG TABLET EC PO SCH (10:29)
[2018-08-19] MEDS: LACTOBACILLUS CHEW TABLET PO SCH ×3 (10:29→20:28)
[2018-08-19] MEDS: metroNIDAZOLE 500 MG TABLET PO SCH ×2 (10:32→16:41)
[2018-08-19] MEDS ORDERED: FENTANYL PF 100 MCG/2ML ONE (15:22)
[2018-08-19] MEDS ORDERED: MIDAZOLAM 1 MG/ML, 5ML ONE (15:22)
[2018-08-19] MEDS ORDERED: FLUMAZENIL 0.1 MG/1 ML, 5ML ONE (15:23)
[2018-08-19] MEDS ORDERED: NALOXONE 1 MG/ML, 2ML ONE (15:23)
[2018-08-19] MEDS: hydrALAzine 20 MG/ML, 1ML IV PRN (16:41)
[2018-08-19] MEDS ORDERED: ATORVASTATIN 10 MG TABLET PO SCH (21:00)
[2018-08-20 01:10] VITALS: BP 167/67
[2018-08-20] MEDS: metroNIDAZOLE 500 MG TABLET PO SCH ×2 (01:12→07:55)
[2018-08-20 04:59] VITALS: BP 186/75
[2018-08-20] MEDS: HEPARIN 5,000 UNITS/ML, 1ML SQ SCH ×2 (05:00→12:25)
[2018-08-20] MEDS ORDERED: VANCOMYCIN 1,700 MG in SODIUM CHLORIDE 0.9% 250 ML IV ONE (05:00)
[2018-08-20] MEDS: CARVEDILOL 6.25 MG TABLET PO SCH (05:01)
[2018-08-20] MEDS: ACETAMINOPHEN 325 MG TABLET PO PRN (05:17)
[2018-08-20 06:36] VITALS: BP 190/76
[2018-08-20] MEDS: hydrALAzine 20 MG/ML, 1ML IV PRN (06:41)
[2018-08-20] MEDS: INSULIN LISPRO 100 UNITS/ML, PEN SQ-INSULIN SCH ×2 (07:00→11:00)
[2018-08-20] MEDS: LACTOBACILLUS CHEW TABLET PO SCH (07:54)
[2018-08-20] MEDS: ASPIRIN 81 MG TABLET EC PO SCH (07:54)
[2018-08-20] MEDS: CIPROFLOXACIN 500 MG TABLET PO SCH (07:54)
[2018-08-20 08:00] VITALS: BP 180/67
[2018-08-20] MEDS: LOSARTAN 50MG TABLET PO SCH (08:00)
[2018-08-20 10:30] LABS: MEAN CORPUSCULAR HEMOGLOBIN 32.3 pg (27.5-34.5); MEAN CORPUSCULAR HGB CONC 33.1 g/dL (33.2-36.2); MEAN CORPUSCULAR VOLUME 97.4 fL (81-97); MEAN PLATELET VOLUME 7.2 fL (7.4-10.4); PLATELET COUNT 404 x10^3/uL (130-400); RED BLOOD COUNT 3.23 x10^6/uL (4.38-5.82); RED CELL DISTRIBUTION WIDTH 13.4 % (9.4-14.8)
[2018-08-20 10:40] VITALS: BP 181/68
[2018-08-20 11:35] LABS: BASOPHILS # (AUTO) 0.04 x10^3/uL (0-0.1); BASOPHILS % (AUTO) 0 % (0-1); EOSINOPHILS # (AUTO) 0.39 x10^3/uL (0-0.4); EOSINOPHILS % (AUTO) 3 % (1-7); LYMPHOCYTES # (AUTO) 1.69 x10^3/uL (1-3.4); LYMPHOCYTES % (AUTO) 12 % (22-44); MD SCAN; MONOCYTES # (AUTO) 0.75 x10^3/uL (0.2-0.8); MONOCYTES % (AUTO) 5 % (2-9); NEUTROPHILS # (AUTO) 11.39 x10^3/uL (1.8-6.8); NEUTROPHILS % (AUTO) 80 % (42-75)
[2018-08-20] MEDS ORDERED: IPRA3AMP30 HHN (12:30)
[2018-08-20] MEDS ORDERED: LOSA50TA2 PO (12:30)
[2018-08-20] MEDS ORDERED: CARV12.543 PO (12:30)
[2018-08-20] MEDS ORDERED: Vancomycin Per Pharmacy MC (12:30)
[2018-08-20] MEDS ORDERED: ACID1TAB7 PO (12:30)
[2018-08-20] MEDS ORDERED: METR500T PO (12:30)
[2018-08-20] MEDS ORDERED: CIPR500T87 PO (12:30)
[2018-08-20 13:18] VITALS: BP 184/75
== END 2018-08-20 14:05 | disposition home or self-care (01) | DRG 919 ==
LOC: ED 23:55 → EDIP 08-14 00:24 → 4WST 08-14 01:00 → CCU 08-14 23:55 → 5SO 08-15 17:14
PROVIDERS: ADMIT Internal Medicine; ATTEND Internal Medicine
PROC: 5A1D70Z Performance of Urinary Filtration, Intermittent, Less than 6 Hours Per Day (ICD-10-PCS; 2018-08-14)
PROC: 0WPGX3Z Removal of Infusion Device from Peritoneal Cavity, External Approach (ICD-10-PCS; 2018-08-16)
PROC: 5A1D70Z Performance of Urinary Filtration, Intermittent, Less than 6 Hours Per Day (ICD-10-PCS; principal; 2018-08-16 11:00)
PROC: 5A1D70Z Performance of Urinary Filtration, Intermittent, Less than 6 Hours Per Day (ICD-10-PCS; 2018-08-19)
PROC: 0W9F3ZZ Drainage of Abdominal Wall, Percutaneous Approach (ICD-10-PCS; 2018-08-19)
DX: T85.71XA Infection and inflammatory reaction due to peritoneal dialysis catheter, initial encounter (principal); A41.02 Sepsis due to Methicillin resistant Staphylococcus aureus; N18.6 End stage renal disease; I50.43 Acute on chronic combined systolic (congestive) and diastolic (congestive) heart failure; K65.0 Generalized (acute) peritonitis; I13.2 Hypertensive heart and chronic kidney disease with heart failure and with stage 5 chronic kidney disease, or end stage renal disease; D68.69 Other thrombophilia; K57.20 Diverticulitis of large intestine with perforation and abscess without bleeding; L03.311 Cellulitis of abdominal wall; Z99.2 Dependence on renal dialysis; B96.89 Other specified bacterial agents as the cause of diseases classified elsewhere; D63.1 Anemia in chronic kidney disease; E11.22 Type 2 diabetes mellitus with diabetic chronic kidney disease; E78.5 Hyperlipidemia, unspecified; E66.9 Obesity, unspecified; Z68.29 Body mass index [BMI] 29.0-29.9, adult; I25.10 Atherosclerotic heart disease of native coronary artery without angina pectoris; I48.0 Paroxysmal atrial fibrillation; I27.20 Pulmonary hypertension, unspecified; J44.9 Chronic obstructive pulmonary disease, unspecified; K21.9 Gastro-esophageal reflux disease without esophagitis; N40.0 Benign prostatic hyperplasia without lower urinary tract symptoms; R09.02 Hypoxemia; R32 Unspecified urinary incontinence; Y83.8 Other surgical procedures as the cause of abnormal reaction of the patient, or of later complication, without mention of misadventure at the time of the procedure; Z79.01 Long term (current) use of anticoagulants; Z79.4 Long term (current) use of insulin; Z79.82 Long term (current) use of aspirin; Z79.899 Other long term (current) drug therapy; Z87.891 Personal history of nicotine dependence
CPT/HCPCS: 36415; 49083; 71045; 74177; 75989; 80053; 80069; 80202; 81001; 82962; 83036; 83605; 83690; 83735; 83880; 83970; 84145; 84484; 85025; 85651; 86140; 86141; 86705; 86706; 87040; 87070; 87075; 87077; 87081; 87147; 87186; 87205; 87340; 87400; 93005; 93306; 99285; G0378; J0153; J0171; J0295; J0696; J0882; J1644; J2250; J2543; J2704; J3010; J3370; J0282; J0360; J1160; J1815; J2310; J7050; J7060

== ENCOUNTER → 2018-08-28 | Outpatient (CLI) | payer MEDICARE, OTHER ==
[~2018-08-28] MED LIST changes: +ACID1TAB7 PO; +CARV12.543 PO; +CIPR500T87 PO; +GADOBUTROL 10 MMOL/10 ML PFS ONE; +IPRA3AMP30 HHN; +LOSA50TA2 PO; +METR500T PO; +Vancomycin Per Pharmacy MC
== END | disposition home or self-care (01) ==
LOC: CFH 06:43
PROVIDERS: ATTEND Ophthalmology
DX: I67.82 Cerebral ischemia (principal); G31.9 Degenerative disease of nervous system, unspecified; R90.82 White matter disease, unspecified
CPT/HCPCS: 70543; 70553; A9585

== ENCOUNTER 2018-10-03 09:43 | Observation (INO) | payer MEDICARE, OTHER ==
[~2018-10-03] VITALS: Ht 175.3 cm; Wt 106.0 kg
[~2018-10-03 09:43] MED LIST changes: -GADOBUTROL 10 MMOL/10 ML PFS ONE
--- NOTE | 2018-10-03 10:05 | NUR ---
PATIENT 83% IN TRIAGE, BROUGHT BACK TO ROOM 27, NOW 94% 2L NC. PLACED ON BUDGET CLERK BY EMT.
--- NOTE | 2018-10-03 10:20 | NUR ---
PT BIB P/V FOR MULTIPLE EPISODES OF N/V SINCE 4 AM. PT AWOKE AT 2 AM WITH NAUSEA AND NOT BEING ABLE TO SLEEP. PT REPORTS HAVING [employer] FOR DINNER LAST NIGHT. PT DENIES DIARRHEA. PT ON MONITOR AND IV STARTED.
[2018-10-03] MEDS ORDERED: ONDANSETRON 2MG/ML, 2ML ONE (10:27)
[2018-10-03] MEDS ORDERED: SODIUM CHLORIDE FLUSH 10ML SYR IVF ONE (10:30)
[2018-10-03] MEDS ORDERED: ONDANSETRON 2MG/ML, 2ML IVPush ONE (10:30)
--- NOTE | 2018-10-03 10:35 | NUR ---
EKG REPEATED AFTER PT WENT INTO A HR IN THE 140'S ON THE MONITOR WITH VOMITING JUST PRIOR. DR. MONZON AT BEDSIDE. PT HR WENT DOWN TO 100 A MINUTE LATER.
[2018-10-03 10:48] LABS: BASOPHILS # (AUTO) 0.04 x10^3/uL (0-0.1); BASOPHILS % (AUTO) 0 % (0-1); EOSINOPHILS # (AUTO) 0.07 x10^3/uL (0-0.4); EOSINOPHILS % (AUTO) 1 % (1-7); LYMPHOCYTES # (AUTO) 1.22 x10^3/uL (1-3.4); LYMPHOCYTES % (AUTO) 10 % (22-44); MD NO; MEAN CORPUSCULAR HEMOGLOBIN 31.8 pg (27.5-34.5); MEAN CORPUSCULAR HGB CONC 31.5 g/dL (33.2-36.2); MEAN PLATELET VOLUME 8.6 fL (7.4-10.4); MONOCYTES # (AUTO) 1.02 x10^3/uL (0.2-0.8); MONOCYTES % (AUTO) 9 % (2-9); NEUTROPHILS % (AUTO) 80 % (42-75); PLATELET COUNT 188 x10^3/uL (130-400); RED BLOOD COUNT 3.67 x10^6/uL (4.38-5.82); RED CELL DISTRIBUTION WIDTH 15.8 % (9.4-14.8)
--- NOTE | 2018-10-03 10:48 | NUR ---
BEDSIDE REPORT FROM SHELBY DUBON. PT RESTING IN [facility] ON 2L NC
[2018-10-03 10:58] LABS: ALANINE AMINOTRANSFERASE 29 U/L (12-78); ALBUMIN 3.5 g/dL (3.4-5.0); ANION GAP 10 mmol/L (5-15); CHLORIDE 98 mmol/L (98-107); CREATININE 5.82 mg/dL (0.7-1.3)
[2018-10-03 11:15] LABS: ALKALINE PHOSPHATASE 119 U/L (45-117); BILIRUBIN,TOTAL 1.1 mg/dL (0.2-1.0); TOTAL PROTEIN 7.3 g/dL (6.4-8.2)
--- NOTE | 2018-10-03 11:21 | NUR ---
pt returned from rad
--- NOTE | 2018-10-03 11:27 | NUR ---
PT ON DIALYSIS M/W/F, DOES NOT MAKE URINE, NOTIFIED, OK TO CANCEL UA.
[2018-10-03] MEDS ORDERED: INSULIN HUMULIN 70/30, 3ML PEN SQ-INSULIN SCH ×2 (12:00→21:00)
[2018-10-03 12:09] LABS: ACETONE, SERUM Negative (Negative)
--- NOTE | 2018-10-03 12:09 | NUR ---
PT RESTING IN [place] WITH AT BEDSIDE, PT UP FOR RECHECK
--- NOTE | 2018-10-03 12:54 | NUR ---
ROOM AIR SAT 87-90%
--- NOTE | 2018-10-03 13:11 | NUR ---
pt resting in gurney with at bedside, call light within reach. pt to be admitted
[2018-10-03 13:32] LABS: TROPONIN I 0.233 ng/mL (0.000-0.045)
--- NOTE | 2018-10-03 13:33 | NUR ---
THAIS 0.233MD NOTIFIED
[2018-10-03] MEDS ORDERED: ONDANSETRON 2MG/ML, 2ML IVPush PRN (14:00)
[2018-10-03] MEDS ORDERED: ALBUTEROL/IPRATROPIUM 2.5MG/0.5MG, 3 ML HHN PRN (14:00)
[2018-10-03] MEDS ORDERED: ACETAMINOPHEN 325 MG TABLET PO PRN (14:00)
[2018-10-03] MEDS ORDERED: ONDANSETRON ODT 4 MG PO PRN (14:00)
[2018-10-03] MEDS ORDERED: INSULIN LISPRO 100 UNITS/ML, PEN SQ-INSULIN SCH ×2 (14:00→21:00)
--- NOTE | 2018-10-03 14:28 | NUR ---
REPORT TO SANDRO DUBON
[2018-10-03] MEDS: SODIUM CHLORIDE 0.9% 1,000 ML IV SCH (14:30)
[2018-10-03] MEDS ORDERED: ALBUTEROL SULFATE 2.5 MG/3 ML ONE (14:47)
[2018-10-03] MEDS: BUDESONIDE 0.5 MG/2 ML INHA INH SCH ×2 (15:00→21:50)
[2018-10-03] MEDS: ALBUTEROL SULFATE 2.5 MG/3 ML NPPB SCH ×2 (15:03→21:50)
[2018-10-03] MEDS: LACTOBACILLUS CHEW TABLET PO SCH ×2 (15:31→21:11)
[2018-10-03] MEDS: HEPARIN 5,000 UNITS/ML, 1ML SQ SCH ×2 (15:31→22:01)
[2018-10-03 16:36] LABS: TROPONIN I 0.206 ng/mL (0.000-0.045)
[2018-10-03 20:05] VITALS: BP 129/67
[2018-10-03] MEDS: CARVEDILOL 12.5 MG TABLET PO SCH (21:12)
[2018-10-04 00:02] LABS: MICROSCOPIC INDICATED
[2018-10-04 00:10] LABS: CULTURE INDICATED? NO
[2018-10-04] MEDS: ALBUTEROL SULFATE 2.5 MG/3 ML NPPB SCH ×3 (03:00→15:40)
[2018-10-04 03:15] VITALS: BP 136/82
[2018-10-04] MEDS: HEPARIN 5,000 UNITS/ML, 1ML SQ SCH ×2 (05:52→14:44)
[2018-10-04 06:22] LABS: BASOPHILS # (AUTO) 0.08 x10^3/uL (0-0.1); BASOPHILS % (AUTO) 1 % (0-1); EOSINOPHILS # (AUTO) 0.21 x10^3/uL (0-0.4); EOSINOPHILS % (AUTO) 2 % (1-7); LYMPHOCYTES # (AUTO) 2.21 x10^3/uL (1-3.4); LYMPHOCYTES % (AUTO) 25 % (22-44); MD NO; MEAN CORPUSCULAR HEMOGLOBIN 33.1 pg (27.5-34.5); MEAN CORPUSCULAR HGB CONC 32.5 g/dL (33.2-36.2); MEAN CORPUSCULAR VOLUME 101.9 fL (81-97); MEAN PLATELET VOLUME 9.1 fL (7.4-10.4); MONOCYTES # (AUTO) 1.14 x10^3/uL (0.2-0.8); MONOCYTES % (AUTO) 13 % (2-9); NEUTROPHILS % (AUTO) 60 % (42-75); PLATELET COUNT 170 x10^3/uL (130-400); RED BLOOD COUNT 3.32 x10^6/uL (4.38-5.82); RED CELL DISTRIBUTION WIDTH 15.1 % (9.4-14.8)
[2018-10-04 06:26] LABS: CHLORIDE 101 mmol/L (98-107)
[2018-10-04 06:32] LABS: ANION GAP 8 mmol/L (5-15); CALCIUM 8.7 mg/dL (8.5-10.1); CREATININE 6.77 mg/dL (0.7-1.3)
[2018-10-04 07:50] VITALS: BP 130/79
[2018-10-04] MEDS: BUDESONIDE 0.5 MG/2 ML INHA INH SCH (09:00)
[2018-10-04] MEDS ORDERED: GABAPENTIN 300 MG CAPSULE PO SCH (09:00)
[2018-10-04] MEDS ORDERED: ATORVASTATIN 10 MG TABLET PO SCH (09:00)
[2018-10-04] MEDS ORDERED: LOSARTAN 50MG TABLET PO SCH (09:00)
[2018-10-04] MEDS ORDERED: ASPIRIN 81 MG TABLET EC PO SCH (09:00)
[2018-10-04] MEDS: SODIUM CHLORIDE 0.9% 1,000 ML IV SCH (09:36)
[2018-10-04] MEDS: CARVEDILOL 12.5 MG TABLET PO SCH (09:37)
[2018-10-04] MEDS: LACTOBACILLUS CHEW TABLET PO SCH ×2 (09:37→15:40)
[2018-10-04] MEDS ORDERED: WARF5TAB PO (09:58)
[2018-10-04] MEDS ORDERED: INSU100I18 SQ (09:58)
[2018-10-04] MEDS ORDERED: INSULIN HUMULIN 70/30, 3ML PEN SQ-INSULIN SCH ×2 (12:00→21:00)
[2018-10-04 12:51] VITALS: BP 135/82
[2018-10-04 17:27] LABS: HEMOGLOBIN A1C 5.8 % (4.2-6.3)
[2018-10-04] MEDS ORDERED: hydrALAzine 20 MG/ML, 1ML ONE (18:45)
[2018-10-04] MEDS ORDERED: hydrALAzine 20 MG/ML, 1ML IV ONE (19:00)
[2018-10-04 19:22] VITALS: BP 165/84
[2018-10-04] MEDS ORDERED: CARVEDILOL 6.25 MG TABLET PO SCH (21:00)
[2018-10-04] MEDS ORDERED: CARVEDILOL 12.5 MG TABLET PO SCH (21:00)
== END 2018-10-04 19:45 | disposition home or self-care (01) ==
LOC: ED 10:34 → EDIP 14:00 → 4EST 14:51
PROVIDERS: ADMIT Internal Medicine; ATTEND Internal Medicine
DX: I12.0 Hypertensive chronic kidney disease with stage 5 chronic kidney disease or end stage renal disease (principal); N18.6 End stage renal disease; K59.00 Constipation, unspecified; E66.9 Obesity, unspecified; I48.0 Paroxysmal atrial fibrillation; Z99.2 Dependence on renal dialysis; K21.9 Gastro-esophageal reflux disease without esophagitis; D63.1 Anemia in chronic kidney disease; E78.5 Hyperlipidemia, unspecified; E11.22 Type 2 diabetes mellitus with diabetic chronic kidney disease; N40.0 Benign prostatic hyperplasia without lower urinary tract symptoms; J44.9 Chronic obstructive pulmonary disease, unspecified
CPT/HCPCS: 36415; 74022; 80048; 80053; 81001; 82010; 82962; 83036; 83605; 83690; 83880; 84484; 85025; 90935; 93005; 94640; 96372; 96374; 96375; 99284; G0378; J0360; J1644; J1815; J2405; J7613; J7626; G0008

== ENCOUNTER 2019-03-22 17:27 | Inpatient (IN) | payer MEDICARE, OTHER ==
[~2019-03-22] VITALS: Ht 177.8 cm; Wt 107.0 kg
[~2019-03-22 17:27] MED LIST changes: +CALCIUM ACETATE PO; +CARV6.2512 PO; +DOCU-131 PO; +INSU100C5 SQ-INSULIN; +INSU100I11 SQ-INSULIN; +SENN-193 NG; +SEVE800T8 PO; +WARF10TA43 PO; +WARF5TAB PO; +Warfarin Maintenance Protocol XX
--- NOTE | 2019-03-22 17:37 | NUR ---
PT WAS BIB BY PRIVATE VEHICLE. DROVE HIM IN. PAITENT WAS UNRESPONSIVE IN THE CAR. BROUGHT INTO TRAUMA ROOM. BICARB, CALCIUM, AMIODARONE, ETONIDATE, VECURONIUM BROMIDE WAS GIVEN. INTUBATED AT 1736. BS 91.
[2019-03-22] MEDS ORDERED: PROPOFOL 100 ML IV ONE (17:53)
[2019-03-22] MEDS ORDERED: SODIUM CHLORIDE FLUSH 10ML SYR IVF ONE (18:00)
--- NOTE | 2019-03-22 18:07 | NUR ---
LATE ENTRY: PT WAS FOUND UNRESPONISVE INSIDE A VEHICLE WHEN HIS CAME IN SHOUTING "I NEED HELP MY IS NOT BREATHING". PT WAS CYNOTIC AND HAD PERIPHERAL CYNOSIS PRESENT. PT WAS TAKEN STRAIGHT TO A TRUANY ROOM TO BE EVAULATED BY , IMELDA GONSALVES WAS PAGED. PT RECIEVED CACL, BICARB, AND 300MG OF AMIODARONE. THEN GIVEN VECORONIUM AND ETOMIDATE FOR RSI. PLEASE REFER TO CODE NOTES FOR DOSAGES. PT THEN WAS INTUBATED WITH A 8.0 TUBE AT 24CM AND A OG TUBE WAS PLACED BY SHANEKA CCU RN. PT HAD ALBERT PLACED BY THIS RN AND SHANEKA CCU RN. PT HAD TWO LITERS WIDE OPEN FOR FLUID RESUSCITATION. PT HAD TWO PIVS PLACED IN RIGHT ARM LEFT ARM HAD A FISTUALA. PT THEN WAS PREPPED FOR CENTRAL LINE. PT REPORT WAS GIVEN TO TONI SANTACRUZ RN WHO ASSUMED CARE AT THIS TIME. TIMEX WITHA BAND SILVER IN COLOR WITH GOLD COLOR TRIM WAS GIVEN TO BY SHANEKA CCU RN.
[2019-03-22 18:08] LABS: ANION GAP 15 mmol/L (5-15); CALCIUM 10.5 mg/dL (8.5-10.1); CHLORIDE 92 mmol/L (98-107); INTERNATIONAL NORMALIZED RATIO 1.27 (0.93-1.1); PROTHROMBIN TIME 13.2 Seconds (9.6-11.5)
[2019-03-22 18:13] LABS: ALANINE AMINOTRANSFERASE 48 U/L (12-78); ALKALINE PHOSPHATASE 187 U/L (45-117); BILIRUBIN,TOTAL 1.4 mg/dL (0.2-1.0); CREATININE 7.05 mg/dL (0.7-1.3); TOTAL PROTEIN 6.7 g/dL (6.4-8.2); TROPONIN I < 0.015 ng/mL (0.000-0.045)
--- NOTE | 2019-03-22 18:15 | NUR ---
DIPRIVA AT 4.99MCG/KG/MIN WAS STARTED PER VERBAL ORDER OF MD LAW. Addendum: 03/22/19 at 1816 by KVARGAS DIPRIVAN AT 4.99MCG/KG/MIN WAS STARTED PER VERBAL ORDER OF MD LAW.
[2019-03-22 18:16] LABS: MEAN CORPUSCULAR HEMOGLOBIN 35.1 pg (27.5-34.5); MEAN CORPUSCULAR VOLUME 109.8 fL (81-97); MEAN PLATELET VOLUME 10.9 fL (7.4-10.4); PLATELET COUNT 220 x10^3/uL (130-400); RED BLOOD COUNT 3.89 x10^6/uL (4.38-5.82); RED CELL DISTRIBUTION WIDTH 19.4 % (9.4-14.8)
[2019-03-22 18:45] LABS: MD MORPH REVIEW ONLY
[2019-03-22 18:46] LABS: BASOPHILS # (AUTO) 0.06 x10^3/uL (0-0.1); BASOPHILS % (AUTO) 1 % (0-1); EOSINOPHILS # (AUTO) 0.17 x10^3/uL (0-0.4); EOSINOPHILS % (AUTO) 2 % (1-7); LYMPHOCYTES % (AUTO) 25 % (22-44); MONOCYTES # (AUTO) 1.06 x10^3/uL (0.2-0.8); MONOCYTES % (AUTO) 11 % (2-9); NEUTROPHILS % (AUTO) 62 % (42-75)
[2019-03-22 18:51] LABS: ANISOCYTOSIS 1+
[2019-03-22 18:52] LABS: OVALOCYTES 1+
[2019-03-22 18:53] LABS: ECHINOCYTES 1+
[2019-03-22 18:54] LABS: <PLATELET ESTIMATE> ADEQUATE; <PLT MORPHOLOGY> NORMAL PLT MORPH
[2019-03-22] MEDS ORDERED: CEFTRIAXONE PMX 1GM/50ML 50 ML IVPB ONE (19:00)
--- NOTE | 2019-03-22 19:00 | NUR ---
REPORT RECEIVED, POC DISCUSSED, CARE ASSUMED. ASSESSMENT DONE. PT IS RESPONDING TO COMMANDS, PROPAFOL AT 15CMG/KG/MIN. ETT 8.0/25 LIP, AC 18M TV 620, FI02 100%, PEEP 12, LS COARSE. FISTULA L ARM +THRILL/BRUIT. OGT TO LCWS. AT BEDSIDE.
[2019-03-22] MEDS ORDERED: CEFTRIAXONE PMX 1GM/50ML 50 ML ONE (19:18)
--- NOTE | 2019-03-22 19:20 | NUR ---
PROPAFOL INCREASED TO 20MCG/KG/MIN.
[2019-03-22] MEDS ORDERED: ETOMIDATE 40 MG/20 ML IVPush ONE (19:30)
[2019-03-22] MEDS ORDERED: PROPOFOL 100 ML IV PRN (19:30)
[2019-03-22] MEDS ORDERED: AMIODARONE 50 MG/ML, 3ML IVPush ONE (19:30)
[2019-03-22] MEDS ORDERED: VECURONIUM 10 MG IVPush ONE (19:30)
--- NOTE | 2019-03-22 19:39 | NUR ---
REPORT TO JAGDISH MUÑOZ. PT TO BE ADMITTED TO 541.
[2019-03-22] MEDS ORDERED: SODIUM BICARB 8.4%, 50ML SYRINGE ONE (20:32)
[2019-03-22] MEDS ORDERED: SODIUM BICARBONATE 1 MEQ/ML, 50ML VIAL IVPush ONE (21:00)
[2019-03-22] MEDS ORDERED: DEXMEDETOMIDINE 1,000 MCG in SODIUM CHLORIDE 0.9% 240 ML IV PRN (21:00)
[2019-03-22 21:06] VITALS: BP 86/62
[2019-03-22] MEDS: ALBUTEROL/IPRATROPIUM 2.5MG/0.5MG, 3 ML NPPB SCH (22:20)
[2019-03-22] MEDS ORDERED: ALBUTEROL/IPRATROPIUM 2.5MG/0.5MG, 3 ML ONE (22:22)
[2019-03-22] MEDS: DILTIAZEM 30 MG TABLET PO SCH (22:42)
[2019-03-23] MEDS: ALBUTEROL/IPRATROPIUM 2.5MG/0.5MG, 3 ML NPPB SCH ×4 (02:00→20:44)
[2019-03-23 04:46] LABS: BASOPHILS # (AUTO) 0.04 x10^3/uL (0-0.1); BASOPHILS % (AUTO) 1 % (0-1); EOSINOPHILS # (AUTO) 0.17 x10^3/uL (0-0.4); EOSINOPHILS % (AUTO) 2 % (1-7); LYMPHOCYTES # (AUTO) 1.75 x10^3/uL (1-3.4); LYMPHOCYTES % (AUTO) 21 % (22-44); MD NO; MEAN CORPUSCULAR HEMOGLOBIN 34.4 pg (27.5-34.5); MEAN CORPUSCULAR HGB CONC 31.6 g/dL (33.2-36.2); MEAN CORPUSCULAR VOLUME 108.6 fL (81-97); MEAN PLATELET VOLUME 9.2 fL (7.4-10.4); MONOCYTES # (AUTO) 1.15 x10^3/uL (0.2-0.8); MONOCYTES % (AUTO) 14 % (2-9); NEUTROPHILS # (AUTO) 5.29 x10^3/uL (1.8-6.8); NEUTROPHILS % (AUTO) 63 % (42-75); PLATELET COUNT 172 x10^3/uL (130-400); RED BLOOD COUNT 3.71 x10^6/uL (4.38-5.82); RED CELL DISTRIBUTION WIDTH 18.8 % (9.4-14.8)
[2019-03-23 04:52] LABS: INTERNATIONAL NORMALIZED RATIO 1.31 (0.93-1.1); PROTHROMBIN TIME 13.6 Seconds (9.6-11.5)
[2019-03-23 04:56] LABS: ALANINE AMINOTRANSFERASE 39 U/L (12-78); ALBUMIN 2.6 g/dL (3.4-5.0); ANION GAP 10 mmol/L (5-15); CALCIUM 8.8 mg/dL (8.5-10.1); CHLORIDE 97 mmol/L (98-107); CREATININE 6.91 mg/dL (0.7-1.3)
[2019-03-23 04:58] LABS: ALKALINE PHOSPHATASE 176 U/L (45-117); BILIRUBIN,TOTAL 1.1 mg/dL (0.2-1.0)
[2019-03-23] MEDS: NOREPINEPHRINE 4 MG in SODIUM CHLORIDE 0.9% 246 ML IV PRN (05:31)
[2019-03-23] MEDS: CEFTRIAXONE PMX 2GM/50ML 50 ML IV SCH (06:25)
[2019-03-23] MEDS: PANTOPRAZOLE 40 MG IV IVPush SCH (08:09)
[2019-03-23] MEDS: DILTIAZEM 30 MG TABLET PO SCH (08:09)
[2019-03-23 09:18] LABS: MICROSCOPIC INDICATED
[2019-03-23 09:22] LABS: CULTURE INDICATED? YES
[2019-03-23] MEDS ORDERED: ALBUTEROL/IPRATROPIUM 2.5MG/0.5MG, 3 ML NPPB PRN (11:30)
[2019-03-23] MEDS ORDERED: PROP10TA16 PO (13:40)
[2019-03-23] MEDS ORDERED: AMIODARONE 150 MG in DEXTROSE 5% 100 ML IVPB ONE (15:11)
[2019-03-23] MEDS ORDERED: ALBUMIN HUMAN 25% 100 ML IV ONE (15:30)
[2019-03-23] MEDS: AMIODARONE 900 MG in DEXTROSE 5% 482 ML IV PRN (15:48)
[2019-03-23] MEDS: FILTER 0.22 MICRON IV PRN (15:49)
[2019-03-23] MEDS ORDERED: WARFARIN 5 MG TABLET PO-COUM SCH (18:00)
[2019-03-23] MEDS ORDERED: ZOLPIDEM 5MG TABLET PO PRN (20:00)
[2019-03-24] MEDS: NOREPINEPHRINE 4 MG in SODIUM CHLORIDE 0.9% 246 ML IV PRN (03:26)
[2019-03-24 04:58] LABS: MEAN CORPUSCULAR HEMOGLOBIN 34.1 pg (27.5-34.5); MEAN CORPUSCULAR HGB CONC 31.4 g/dL (33.2-36.2); MEAN CORPUSCULAR VOLUME 108.6 fL (81-97); MEAN PLATELET VOLUME 8.7 fL (7.4-10.4); PLATELET COUNT 221 x10^3/uL (130-400); RED BLOOD COUNT 3.93 x10^6/uL (4.38-5.82); RED CELL DISTRIBUTION WIDTH 18.9 % (9.4-14.8)
[2019-03-24 05:00] LABS: INTERNATIONAL NORMALIZED RATIO 1.27 (0.93-1.1); PROTHROMBIN TIME 13.2 Seconds (9.6-11.5)
[2019-03-24 05:04] LABS: ANION GAP 13 mmol/L (5-15); CHLORIDE 94 mmol/L (98-107)
[2019-03-24] MEDS: AMIODARONE 900 MG in DEXTROSE 5% 482 ML IV PRN ×2 (05:31→23:16)
[2019-03-24] MEDS: FILTER 0.22 MICRON IV PRN (05:31)
[2019-03-24 05:45] LABS: BASOPHILS # (AUTO) 0.06 x10^3/uL (0-0.1); BASOPHILS % (AUTO) 1 % (0-1); EOSINOPHILS # (AUTO) 0.25 x10^3/uL (0-0.4); EOSINOPHILS % (AUTO) 2 % (1-7); LYMPHOCYTES # (AUTO) 1.47 x10^3/uL (1-3.4); LYMPHOCYTES % (AUTO) 12 % (22-44); MD SCAN; MONOCYTES # (AUTO) 1.56 x10^3/uL (0.2-0.8); MONOCYTES % (AUTO) 13 % (2-9); NEUTROPHILS # (AUTO) 8.56 x10^3/uL (1.8-6.8); NEUTROPHILS % (AUTO) 72 % (42-75)
[2019-03-24] MEDS: CEFTRIAXONE PMX 2GM/50ML 50 ML IV SCH (06:43)
[2019-03-24] MEDS: PANTOPRAZOLE 40 MG IV IVPush SCH (07:32)
[2019-03-24] MEDS: AZITHROMYCIN 500 MG in SODIUM CHLORIDE 0.9% 250 ML IV SCH (07:59)
[2019-03-24] MEDS ORDERED: ALBUMIN HUMAN 25% 200 ML ONE (08:11)
[2019-03-24] MEDS: ALBUTEROL/IPRATROPIUM 2.5MG/0.5MG, 3 ML NPPB SCH ×2 (08:53→18:32)
[2019-03-24] MEDS ORDERED: AMIODARONE 150 MG in DEXTROSE 5% 100 ML IV ONE (10:30)
[2019-03-24] MEDS ORDERED: HEPARIN 5,000 UNITS/ML, 1ML IV ONE (16:00)
[2019-03-24] MEDS ORDERED: HEPARIN 25,000 UNITS/500ML PMX 500 ML IV PRN (16:00)
[2019-03-24 17:10] LABS: TROPONIN I 0.058 ng/mL (0.000-0.045)
[2019-03-24] MEDS ORDERED: WARFARIN 5 MG TABLET PO-COUM ONE (18:00)
[2019-03-24 21:24] LABS: TROPONIN I 0.058 ng/mL (0.000-0.045)
[2019-03-24] MEDS ORDERED: MELATONIN 5 MG TABLET ONE (23:13)
[2019-03-24] MEDS ORDERED: MELATONIN 5 MG TABLET PO ONE (23:30)
[2019-03-25] MEDS: HEPARIN 5,000 UNITS/ML, 1ML IV PRN ×2 (00:07→06:30)
[2019-03-25] MEDS: ALBUTEROL/IPRATROPIUM 2.5MG/0.5MG, 3 ML NPPB SCH ×2 (03:55→09:50)
[2019-03-25] MEDS: CEFTRIAXONE PMX 2GM/50ML 50 ML IV SCH (06:16)
[2019-03-25 06:19] LABS: INTERNATIONAL NORMALIZED RATIO 1.76 (0.93-1.1); PROTHROMBIN TIME 18.1 Seconds (9.6-11.5)
[2019-03-25] MEDS ORDERED: MIDODRINE 5 MG TABLET PO SCH (09:00)
[2019-03-25] MEDS: PANTOPRAZOLE 40 MG IV IVPush SCH (09:48)
[2019-03-25] MEDS: AZITHROMYCIN 500 MG in SODIUM CHLORIDE 0.9% 250 ML IV SCH (11:22)
[2019-03-25] MEDS ORDERED: WARFARIN 5 MG TABLET PO-COUM ONE (18:00)
== END 2019-03-25 12:31 | disposition expired | DRG 871 ==
LOC: EDBD 17:27 → MERGE 17:27 → ED 18:38 → EDIP 19:10 → CCU 20:08
PROVIDERS: ADMIT Family Medicine; ATTEND Family Medicine
PROC: 0BH17EZ Insertion of Endotracheal Airway into Trachea, Via Natural or Artificial Opening (ICD-10-PCS; principal; 2019-03-22)
PROC: 06H033Z Insertion of Infusion Device into Inferior Vena Cava, Percutaneous Approach (ICD-10-PCS; 2019-03-22)
PROC: 05HY33Z Insertion of Infusion Device into Upper Vein, Percutaneous Approach (ICD-10-PCS; 2019-03-22)
PROC: 06HY33Z Insertion of Infusion Device into Lower Vein, Percutaneous Approach (ICD-10-PCS; 2019-03-22)
PROC: B54BZZA Ultrasonography of Right Lower Extremity Veins, Guidance (ICD-10-PCS; 2019-03-22)
PROC: 5A1945Z Respiratory Ventilation, 24-96 Consecutive Hours (ICD-10-PCS; 2019-03-22)
PROC: 5A12012 Performance of Cardiac Output, Single, Manual (ICD-10-PCS; 2019-03-22)
PROC: 0T9B70Z Drainage of Bladder with Drainage Device, Via Natural or Artificial Opening (ICD-10-PCS; 2019-03-23)
PROC: 5A1D70Z Performance of Urinary Filtration, Intermittent, Less than 6 Hours Per Day (ICD-10-PCS; 2019-03-24)
DX: A41.9 Sepsis, unspecified organism (principal); J18.9 Pneumonia, unspecified organism; J96.01 Acute respiratory failure with hypoxia; J96.02 Acute respiratory failure with hypercapnia; N18.6 End stage renal disease; D68.59 Other primary thrombophilia; I13.2 Hypertensive heart and chronic kidney disease with heart failure and with stage 5 chronic kidney disease, or end stage renal disease; I48.92 Unspecified atrial flutter; J44.0 Chronic obstructive pulmonary disease with (acute) lower respiratory infection; J98.11 Atelectasis; N39.0 Urinary tract infection, site not specified; R57.9 Shock, unspecified; Z99.11 Dependence on respirator [ventilator] status; B96.89 Other specified bacterial agents as the cause of diseases classified elsewhere; D63.1 Anemia in chronic kidney disease; E11.22 Type 2 diabetes mellitus with diabetic chronic kidney disease; E78.5 Hyperlipidemia, unspecified; I25.10 Atherosclerotic heart disease of native coronary artery without angina pectoris; I27.20 Pulmonary hypertension, unspecified; I45.4 Nonspecific intraventricular block; I46.9 Cardiac arrest, cause unspecified; I48.0 Paroxysmal atrial fibrillation; I50.9 Heart failure, unspecified; E87.5 Hyperkalemia; K21.9 Gastro-esophageal reflux disease without esophagitis; N40.0 Benign prostatic hyperplasia without lower urinary tract symptoms; R13.10 Dysphagia, unspecified; Z66 Do not resuscitate; Z86.14 Personal history of Methicillin resistant Staphylococcus aureus infection; Z87.891 Personal history of nicotine dependence; Z91.15 Patient's noncompliance with renal dialysis; Z99.2 Dependence on renal dialysis; Z79.899 Other long term (current) drug therapy; Z79.84 Long term (current) use of oral hypoglycemic drugs
CPT/HCPCS: 36415; 36600; 74018; 84145; 96374; 96375; 99291; J7620; 71045; 80047; 80048; 80053; 81001; 82803; 82962; 83605; 83735; 84100; 84443; 84484; 85025; 85520; 85610; 85730; 87040; 87070; 87077; 87081; 87086; 87186; 87205; 90935; 92950; 93005; 93306; 94002; 94003; 94640; G0378; J0456; J0696; J1644; J2704; P9047; C9113; J0282; J7050; J7060